=== PATIENT | female | born 1995 | race Caucasian/White ===

== ENCOUNTER 2022-04-10 20:28 | Inpatient (IN) | payer OTHER, SELFPAY ==
[2022-04-10 20:29] VITALS: BP 112/80; PULSE 132; RESP 18; TEMP 36.4; O2SAT 100; BMI 29.9
--- NOTE | 2022-04-10 20:48 | EKG12_ITS ---
Test Reason : SYNCOPE Blood Pressure : / mmHG Vent. Rate : 109 BPM Atrial Rate : 109 BPM P-R Int : 156 ms QRS Dur : 084 ms QT Int : 316 ms P-R-T Axes : 054 070 -33 degrees QTc Int : 425 ms Sinus tachycardia T wave abnormality, consider inferior ischemia Abnormal ECG Confirmed by LIBERTAD SINGH, POOJA ([id number]), deputy editor in chief TODD ESCALANTE ([id number]) on 04/14/2022 12:53:17 PM Referred By: WILLIAM Confirmed By:POOJA MAURER MD
--- NOTE | 2022-04-10 20:50 | EDS_ITS ---
HPI History of Present Illness Chief Complaint: Syncope Informant: patient Onset/Context/Timing Onset: Days (4) Context: Gradual Onset Timing: Continuous Quality: Lightheaded like my head is in a fog Location: Generalized Worsened by: Activity Relieved by: Rest Associated Symptoms Associated Symptoms: Dyspnea, palpitations Narrative Narrative: Patient presents with weakness and dizziness that has been getting worse over the last 4 days. Patient states she had a syncopal episode this morning. Patient states she stood up and passed out this morning. Patient states she only passed out briefly. Patient states her came immediately and she was awake by the time he got there. Patient states that she feels like her head is in a fog. Patient states her symptoms are worse with any activity and better with rest. Patient states she went to the urgent care today and they told her she had a fever of 102. Patient was then referred to the emergency department. Patient admits to some palpitations. Patient also admits to some mild shortness of breath. [facility] Medical History Anemia Home Medications ferrous sulfate [iron] 325 mg PO DAILY 04/10/22 [History Last Taken Unknown] Allergy/AdvReac Type Severity Reaction Status Date / Time No Known Allergies Allergy Verified 04/10/22 20:31 Surgical History no surgical history no surgical history Social History Smoking Status: Never smoker [facility] ED Constitutional Constitutional ED: Reports fever(s); Denies chills Eyes Eyes: Denies blurry vision or change in vision ENT ENT ED: Denies rhinorrhea or sore throat Cardiovascular Cardiovascular: Reports palpitations; Denies chest pain Respiratory/Chest Respiratory/Chest: Reports dyspnea; Denies cough Gastrointestinal Gastrointestinal: Denies nausea or vomiting Genitourinary Genitourinary ED: Denies dysuria or hematuria Musculoskeletal Musculoskeletal: Denies back pain or neck pain Integumentary Denies abscess or rash Neurologic Neurologic: Denies headache(s) or weakness Allergic/Immunologic Allergic/Immunologic ED: Denies mouth swelling or urticaria EXAM Physical Exam Const Vital Signs: 04/10/22 20:29 04/10/22 20:48 04/10/22 20:58 Temperature 97.6 F L 101.6 F H Temperature Source Temporal Oral Pulse Rate 132 H 110 H Respiratory Rate 18 22 H Respiratory Effort Normal Non-Labored Respiratory Pattern Normal Blood Pressure 112/80 74/42 L Blood Pressure Mean 90 52 Pulse Ox 100 110 Oxygen Delivery Method Room Air Room Air 04/10/22 21:26 04/10/22 22:08 Temperature 99.3 F H Temperature Source Oral Pulse Rate 115 H 120 H Respiratory Rate 20 H 18 Respiratory Effort Respiratory Pattern Blood Pressure 115/86 H 111/75 Blood Pressure Mean 95 87 Pulse Ox 100 100 Oxygen Delivery Method Room Air Room Air Positive well nourished and well developed General Appearance ED: well developed and NAD HEENT Reports moist mucous membranes Neck supple and no JVD Resp normal respiratory effort and clear to auscultation bilaterally Cardio regular rate, regular rhythm and no murmurs GI normal to inspection, nondistended, normoactive bowel sounds and non-tender Palpation: soft Extremity normal to inspection General Extremety ED: Negative for edema or tenderness General Extremity: Negative for edema Neuro oriented x3, CN's II-XII intact bilaterally and no sensory deficits noted Sensorium / Orientation: alert Motor Exam: strength 5/5 throughout Psych mental status grossly normal Skin no rashes or lesions noted MDM MDM MDM Narrative Medical decision making narrative: Patient's blood pressure dropped to 74/42 on my initial evaluation. Patient was given 2 L of IV fluids. Patient was also noted to have a fever of 101.6. Patient was given a dose of Tylenol for this. EKG was obtained. On my interpretation, it shows sinus tachycardia with a rate of 109. RI interval, QRS interval, and QTc intervals are normal. [place] was normal. There are nonspecific ST-T wave changes in the inferior leads. There are no prior EKGs available for comparison. CBC was within normal limits. PT with INR and PTT were essentially within normal limits. Comprehensive metabolic profile showed a hypokalemia of 3.1. Initial high-sensitivity troponin was 116. Serum hCG was negative. Urinalysis shows 10-25 red blood cells but no white blood cells. There is no bacteria noted. 2-hour repeat high-sensitivity troponin was obtained and it increased up to 247. Patient was given aspirin. Patient was given a dose of oral potassium here. COVID-19 rapid antigen was obtained and is pending. Case was discussed with the hospitalist. She recommended obtaining a chest x-ray. This was ordered. She will admit the patient to the hospital. Patient and family understood and were agreeable with the plan. All questions were answered. Lab Data Attestation: I reviewed the patient's lab results. Labs: Laboratory Results - last 24 hr 04/10/22 04/10/22 04/10/22 20:54 20:54 20:54 WBC 6.2 RBC 4.25 Hgb 12.5 Hct 37.6 MCV 88.5 MCH 29.4 MCHC 33.2 RDW Std Deviation 42.2 RDW Coeff of Miik 13.1 Plt Count 199 MPV 9.7 Immature Gran % (Auto) 0.200 Neut % (Auto) 75.4 H Lymph % (Auto) 17.9 L Nance % (Auto) 6.3 Eos % (Auto) 0.0 Baso % (Auto) 0.2 Absolute Neuts (auto) 4.7 Absolute Lymphs (auto) 1.11 Nucleated RBC % 0 PT 14.9 INR 1.2 APTT 27.7 Sodium 135 L Potassium 3.1 L Chloride 104 Carbon Dioxide 24.0 Anion Gap 7 BUN 11 Creatinine 0.85 Estim Creat Clear Calc 90.25 Est GFR (MDRD) Af Amer 103 Est GFR (MDRD) Non-Af 85 BUN/Creatinine Ratio 12.9 Glucose 110 H Lactic Acid Calcium 8.8 Total Bilirubin 0.60 AST 24 ALT 32 Alkaline Phosphatase 76 Troponin I High Sens 116 H Total Protein 8.8 H Albumin 3.6 Globulin 5.2 H Albumin/Globulin Ratio 0.7 L Serum , Qual Urine Color Urine Clarity Urine pH Ur Specific [place] Urine Protein Urine Glucose (UA) Urine Ketones Urine Occult Blood Urine Nitrite Urine Bilirubin Urine Urobilinogen Ur Leukocyte Esterase Urine RBC Urine WBC Ur Squamous Epith Cells Urine Bacteria Urine Mucus 04/10/22 04/10/22 04/10/22 20:54 20:54 22:15 WBC RBC Hgb Hct MCV MCH MCHC RDW Std Deviation RDW Coeff of Miki Plt Count MPV Immature Gran % (Auto) Neut % (Auto) Lymph % (Auto) Nance % (Auto) Eos % (Auto) Baso % (Auto) Absolute Neuts (auto) Absolute Lymphs (auto) Nucleated RBC % PT INR APTT Sodium Potassium Chloride Carbon Dioxide Anion Gap BUN Creatinine Estim Creat Clear Calc Est GFR (MDRD) Af Amer Est GFR (MDRD) Non-Af BUN/Creatinine Ratio Glucose Lactic Acid 1.0 Calcium Total Bilirubin AST ALT Alkaline Phosphatase Troponin I High Sens Total Protein Albumin Globulin Albumin/Globulin Ratio Serum , Qual NEGATIVE Urine Color Yellow Urine Clarity Clear Urine pH 7.0 Ur Specific [place] 1.010 Urine Protein 100 H Urine Glucose (UA) Normal Urine Ketones 150 A* Urine Occult Blood 250 H Urine Nitrite Negative Urine Bilirubin Negative Urine Urobilinogen 4 H Ur Leukocyte Esterase 25 H Urine RBC 10-25 SEEN Urine WBC 0-5 SEEN Ur Squamous Epith Cells 0-5 SEEN Urine Bacteria 0 SEEN Urine Mucus RARE 04/10/22 22:50 WBC RBC Hgb Hct MCV MCH MCHC RDW Std Deviation RDW Coeff of Miki Plt Count MPV Immature Gran % (Auto) Neut % (Auto) Lymph % (Auto) Nance % (Auto) Eos % (Auto) Baso % (Auto) Absolute Neuts (auto) Absolute Lymphs (auto) Nucleated RBC % PT INR APTT Sodium Potassium Chloride Carbon Dioxide Anion Gap BUN Creatinine Estim Creat Clear Calc Est GFR (MDRD) Af Amer Est GFR (MDRD) Non-Af BUN/Creatinine Ratio Glucose Lactic Acid Calcium Total Bilirubin AST ALT Alkaline Phosphatase Troponin I High Sens 247 H* Total Protein Albumin Globulin Albumin/Globulin Ratio Serum , Qual Urine Color Urine Clarity Urine pH Ur Specific [place] Urine Protein Urine Glucose (UA) Urine Ketones Urine Occult Blood Urine Nitrite Urine Bilirubin Urine Urobilinogen Ur Leukocyte Esterase Urine RBC Urine WBC Ur Squamous Epith Cells Urine Bacteria Urine Mucus EKG Initial EKG: Attestation: I personally reviewed and interpreted this EKG as follows: Interpretation: Sinus Tachycardia (109) and Non-Specific ST Changes Prior EKG tracings: not available for review Prior: No Prior Discharge Plan Triage Chief Complaint: Syncope ED Provider: Jerry Villasenor Dx/Rx/DC Orders Clinical Impression: Syncope and collapse, Non-ST elevated myocardial infarction (non-STEMI), Hypokalemia, Acute febrile illness Prescriptions: No Action ferrous sulfate [iron] 325 mg (65 mg iron) Tablet 325 mg PO DAILY RF: 0 Primary Care Provider: Zia Sims Referrals: Zia Sims DO [Primary Care Provider] - Disposition Disposition: Acute Care Hospital [facility]
[2022-04-10 20:58] VITALS: BP 74/42; PULSE 110; RESP 22; TEMP 38.7; O2SAT 110
[2022-04-10 21:03] LABS: Absolute Lymphocyte Count 1.11 X10^3/uL (0.83-4.51); Absolute Neutrophil Count 4.7 X10^3/uL (2.0-7.7); Basophil# 0.01 X10^3/uL; Basophil% 0.2 % (0-1); Hematocrit 37.6 % (37-47); Hemoglobin 12.5 g/dL (12.0-15.0); Lymphocyte # 1.11 X10^3/ul (0.83-4.51); Lymphocyte % 17.9 % (19-41); Mean Corp Hgb Conc 33.2 g/dL (32-36); Mean Corpuscular Hgb 29.4 pg (27.0-32.0); Mean Corpuscular Volume 88.5 fL (81-99); Mean Platelet Vol. 9.7 fl (6.2-12.0); Monocyte# 0.39 X10^3/uL; Monocyte% 6.3 % (0-10); NRBC Flagged by Analyzer 0 % (0-5); Neutrophil # 4.67 X10^3/uL (2.7-7.7); Neutrophil % 75.4 % (47-70); Platelet Count 199 K/mm3 (150-450); RBC Distribution Width CV 13.1 % (11.6-14.6); RBC Distribution Width SD 42.2 fl (35.1-43.9); Red Blood Count 4.25 M/mm3 (4.2-5.4); White Blood Count 6.2 K/mm3 (4.4-11.0)
[2022-04-10] MEDS: 0.9% Normal Saline 1,000 ML 1000 ML IV ×2 (21:08→21:35)
[2022-04-10] MEDS: Acetaminophen 500 MG Tablet 1000 MG PO (21:08)
[2022-04-10 21:11] LABS: Internal QC Validated? YES +Cl - CLEAR BKGD; Pregnancy, Serum, hCG Quali. NEGATIVE Negative
[2022-04-10 21:12] LABS: International Normalized Ratio 1.2; Prothrombin Time (Protime)PT. 14.9 SECONDS (11.7-14.9)
[2022-04-10 21:22] LABS: ALB/GLOB Ratio 0.7 RATIO (0.9-2.4); AST(SGOT) 24 U/L (15-37); Alanine Aminotransfer ALT/SGPT 32 U/L (13-56); Albumin, Serum 3.6 g/dL (3.2-5.0); Alkaline Phosphatase 76 U/L (45-117); Anion Gap 7 (5-15); BUN 11 mg/dL (7-18); BUN/Creat Ratio 12.9 RATIO (10-20); Calcium,Total 8.8 mg/dL (8.5-10.1); Chloride 104 mmol/L (98-107); Creatinine, Serum 0.85 mg/dL (0.55-1.02); EST Glomerular Filtration Rate 85 mL/min (>60); Est Glom Filt Rate - Afr Amer 103 mL/min (>60); Estimated Creatinine Clearance 90.25 ml/min; Globulin 5.2 g/dL (2.2-4.2); Glucose 110 mg/dL (74-106); Potassium 3.1 mmol/L (3.5-5.1); Protein, Total 8.8 g/dL (6.4-8.2); Sodium Level 135 mmol/L (136-145); Troponin-I HS 116 pg/mL (3.0-54.0)
[2022-04-10 21:26] VITALS: BP 115/86; PULSE 115; RESP 20; O2SAT 100
[2022-04-10 21:27] LABS: Partial Thromboplast Time 27.7 Seconds (24.1-36.2)
[2022-04-10] MEDS: Potassium Chloride Oral Tablet 20 MEQ 40 MEQ PO (22:05)
[2022-04-10] MEDS: Aspirin 81 MG TAB.CHEW 324 MG PO (22:05)
[2022-04-10 22:08] VITALS: BP 111/75; PULSE 120; RESP 18; TEMP 37.4; O2SAT 100
[2022-04-10 22:20] LABS: Bacteria 0 SEEN /hpf (None Seen)
[2022-04-10 22:39] LABS: Color, Urine Yellow (Yellow); Glucose, Dipstick Normal (Normal); Leukocyte Esterase-Dipstick 25 /ul (Negative); Nitrite-Dipstick Negative (Negative); Occult Blood-Urine 250 /ul (Negative); Protein-Dipstick 100 mg/dl (Negative); Urine Bilirubin Dipstick Negative (Negative); Urine Clarity Clear (Clear); Urine Urobilinogen 4 mg/dl (Normal)
[2022-04-10 22:47] LABS: Ketone-Dipstick 150 mg/dl (Negative)
[2022-04-10 22:48] LABS: Mucous, Urine RARE /hpf (<or=2+); Red Blood Cells-Urine 10-25 SEEN /hpf (0-5); Squamous Epithelial Cells - UA 0-5 SEEN /hpf (5-10); White Blood Cells 0-5 SEEN /hpf (0-5)
[2022-04-10 23:20] LABS: Troponin-I HS 247 pg/mL (3.0-54.0)
--- NOTE | 2022-04-10 23:44 | HP.PCM.HOS_ITS ---
HPI - General General Date of Admission: 04/10/22 Date of Service: 04/10/22 Chief Complaint: Fatigue, malaise, syncope, fever HPI Narrative The patient is a 26 y/o F w/ PMHx: Fe deficiency anemia diagnosed ~ 4 years prior with her initial otherwise healthy who presents to the [facility] ED on 04/10/22 with history of her two young children age 1 and 3 having nausea, emesis, diarrhea without fever or chills ~ 1 week prior with resolution with then onset in herself over the last 4 days fatigue, weakness, lightheadedness, dizziness, sensation of feeling in a fog with syncopal event while in the bathroom with no head trauma with LOC lasting only seconds with concurrent fevers, chills, notable throbbing headache of sudden onset only when she bends over with decreased oral intake and nausea without emesis. She denies any, alteration to sense of taste and smell, emesis or diarrhea. Patient states she did have vaccinations in her youth. She denies having been vaccinated against COVID. Her has not been ill and her children all have improved of note. She does state specifically that she feels chest heaviness and some dyspnea when she leans specifically forward even in a seated position and feels improved if she lays backwards. Work-up in the ED included T101.6, heart rate initially 132 with improvement to 102, BP in the ED did decrease down to 74/42 with improvement to 119/87 following 2 L IV fluids, respiratory rate 18-22, 98 200% on room air, CBC with WC 6.2, hemoglobin 12.5, platelet 199 without left shift, unremarkable coags, CMP with sodium 135, potassium 3.1, glucose 110, initial troponin 116 with repeat 247, serum negative, hepatic profile not marked appearing, lactic acid 1.0, urinalysis with no obvious evidence of UTI, EKG with sinus tachycardia with nonspecific inferior changes, rapid COVID antigen negative. In the ED patient ministered potassium supplementation, aspirin 324 mg p.o. x1, Tylenol 1000 mg p.o. x1 and patient initiated on a heparin drip with bolus per discussion with ED physician. Given presentation did discuss that chest x-ray also be obtained in the ED and this is pending at time of evaluation. Blood culture x2 and urine culture pending per ED. PFSH Medical History (Updated 04/11/22 @ 00:[address] Jannette Aden MD) Anemia Obesity Home Medications ferrous sulfate [iron] 325 mg PO DAILY 04/10/22 [History Last Taken Unknown] Allergy/AdvReac Type Severity Reaction Status Date / Time No Known Allergies Allergy Verified 04/10/22 20:31 Family History (Updated 04/11/22 @ 00:[address] Jannette Aden MD) Grandmother Heart disease Maternal grandmother. CAD (coronary artery disease) Hypertension Myocardial infarction Aunt Heart disease Maternal aunt, CAD (coronary artery disease) Hypertension Myocardial infarction Uncle Heart disease Maternal uncle. CAD (coronary artery disease) Hypertension Myocardial infarction other (Denies any marked history in her mother and father specifically including HD, DM, CA but notable maternal family history as noted.) Surgical History (Updated 04/11/22 @ 00:[address] Jannette Aden MD) No history of previous surgery Surgical History no surgical history Social History (Updated 04/11/22 @ 01:[address] Jannette Aden MD) household members: family and children Smoking Status: Never smoker alcohol intake: never substance use type: does not use ROS ROS Narrative Admission Review of Systems: CONSTITUTIONAL: No weight loss, + fever, chills, weakness or fatigue. HEENT: Eyes: No visual loss, blurred vision, double vision or yellow sclerae. Ears, Nose, Throat: No hearing loss, sneezing, congestion, runny nose or sore throat. SKIN: No rash or itching, lesions, wounds. CARDIOVASCULAR: + Dyspnea/chest heaviness when leaning forward, syncopal event, lightheadedness/dizziness, No chest pain, palpitations, edema, orthopnea, syncopal events. RESPIRATORY: + Shortness of breath when leaning forward, No cough or sputum, wheezing, hemoptysis. GASTROINTESTINAL: + Anorexia, nausea, vomiting or diarrhea, abdominal pain, melena, BRBPR. GENITOURINARY: No dysuria, frequency, urgency or retention. NEUROLOGICAL: + headache, dizziness, syncope, No paralysis, ataxia, numbness or tingling in the extremities, focal weakness, change in bowel or bladder control, seizure. MUSCULOSKELETAL: No muscle, back pain, joint pain or stiffness. HEMATOLOGIC: + anemia, bleeding or bruising. LYMPHATICS: No enlarged nodes. No history of splenectomy. PSYCHIATRIC: No history of depression or anxiety. ENDOCRINOLOGIC: No reports of sweating, cold or heat intolerance. No polyuria or polydipsia. ALLERGIES: No history of asthma, hives, eczema or rhinitis. Vital Signs Vital Signs Vital Signs: 04/10/22 20:29 04/10/22 20:48 04/10/22 20:58 Temperature 97.6 F L 101.6 F H Temperature Source Temporal Oral Pulse Rate 132 H 110 H Respiratory Rate 18 22 H Respiratory Effort Normal Non-Labored Respiratory Pattern Normal Blood Pressure 112/80 74/42 L Blood Pressure Mean 90 52 Pulse Ox 100 110 Oxygen Delivery Method Room Air Room Air 04/10/22 21:26 04/10/22 22:08 Temperature 99.3 F H Temperature Source Oral Pulse Rate 115 H 120 H Respiratory Rate 20 H 18 Respiratory Effort Respiratory Pattern Blood Pressure 115/86 H 111/75 Blood Pressure Mean 95 87 Pulse Ox 100 100 Oxygen Delivery Method Room Air Room Air Weight Weight: 180 lb Body Mass Index (BMI) 29.9 Physical Exam Narrative Physical Examination: General: Awake, alert, oriented x 3 and cooperative, seated upright in the ED bed in no apparent distress, fatigued appearing. Skin: Normal color, normal turgor, no icterus, no cyanosis. HEENT: AT/NC, EOMI, PERRLA, dry MM, no carotid bruits or JVD noted. Lungs: Diminished, greater bases, moderate effort, no rales, ronchi or wheezing. Heart: Mildly tachycardic with regular rhythm; no gallop, rub audible. Abdomen: Soft, obese, NTTP, ND, distant mildly hyperactive BS, no HSM. Extremities: No cyanosis, clubbing, or edema. Neurological: Patient awake, alert, oriented as noted, cognitive function intact; pupils equally reactive to light and accommodation, cranial nerves II- XII grossly normal, moving all 4 extremities, no focal deficits, strength moderately global decrease secondary to acute presentation and complaints Psychiatric: Affect appears fatigued, mildly ill appearing, no acute evidence of depressive or anxiety feelings. Results Lab / Micro Data Result Diagrams: 04/10/22 20:54 04/10/22 20:54 Labs: Laboratory Results - last 24 hr 04/10/22 20:54: WBC 6.2, RBC 4.25, Hgb 12.5, Hct 37.6, MCV 88.5, MCH 29.4, MCHC 33.2, RDW Std Deviation 42.2, RDW Coeff of Miki 13.1, Plt Count 199, MPV 9.7, Immature Gran % (Auto) 0.200, Neut % (Auto) 75.4 H, Lymph % (Auto) 17.9 L, [place] % (Auto) 6.3, Eos % (Auto) 0.0, Baso % (Auto) 0.2, Absolute Neuts (auto) 4.7, Absolute Lymphs (auto) 1.11, Nucleated RBC % 0 04/10/22 20:54: PT 14.9, INR 1.2, APTT 27.7 04/10/22 20:54: Sodium 135 L, Potassium 3.1 L, Chloride 104, Carbon Dioxide 2 4.0, Anion Gap 7, BUN 11, Creatinine 0.85, Estim Creat Clear Calc 90.25, Est GFR (MDRD) Af Amer 103, Est GFR (MDRD) Non-Af 85, BUN/Creatinine Ratio 12.9, Glucose 110 H, Calcium 8.8, Total Bilirubin 0.60, AST 24, ALT 32, Alkaline Phosphatase 76, Troponin I High Sens 116 H, Total Protein 8.8 H, Albumin 3.6, Globulin 5.2 H , Albumin/Globulin Ratio 0.7 L 04/10/22 20:54: Lactic Acid 1.0 04/10/22 20:54: Serum , Qual NEGATIVE 04/10/22 22:15: Urine Color Yellow, Urine Clarity Clear, Urine pH 7.0, Ur Specific [place] 1.010, Urine Protein 100 H, Urine Glucose (UA) Normal, Urine Ketones 150 A*, Urine Occult Blood 250 H, Urine Nitrite Negative, Urine Bilirubin Negative, Urine Urobilinogen 4 H, Ur Leukocyte Esterase 25 H, Urine RBC 10-25 SEEN, Urine WBC 0-5 SEEN, Ur Squamous Epith Cells 0-5 SEEN, Urine Bacteria 0 SEEN, Urine Mucus RARE 04/10/22 22:50: Troponin I High Sens 247 H* Micro: Microbiology 04/10/22 23:12 Nasal Secretion SARS-CoV-2 Antigen (Rapid) - Final Assessment & Plan Assessment/Plan (1) Syncope and collapse: (2) Non-ST elevated myocardial infarction (non-STEMI): (3) Hypokalemia: (4) Acute febrile illness: PLAN: The patient is a 26 y/o F w/ PMHx: Fe deficiency anemia diagnosed ~ 4 years prior with her initial otherwise healthy who presents to the [facility] ED on 04/10/22 with history of her two young children age 1 and 3 having nausea, emesis, diarrhea without fever or chills ~ 1 week prior with resolution with then onset in herself over the last 4 days fatigue, weakness, lightheadedness, dizziness, sensation of feeling in a fog with syncopal event wh ile in the bathroom with no head trauma with LOC lasting only seconds with concurrent fevers, chills, notable throbbing headache of sudden onset only when she bends over with decreased oral intake and nausea without emesis. #1. Acute NSTEMI, suspect related with #2 with acute viral syndrome with high suspicion for myocarditis: EKG in ED w/ sinus tachycardia with nonspecific inferior changes with no comparison available, CXR pending upon evaluation as had not been performed previously, Trop elevated, 116 with repeat 247. Will admit to PCU, maintain on a monitored bed, continue serial cardiac enzymes and EKGs. Obtain magnesium level upon admission. Discussed with ED physician and heparin drip will be initiated and continued. Continue medical management w/ asa, AM FLP will be obtained. ECHO requested. CRP and ESR requested. Cardiology consultation requested. #2. Suspected acute viral syndrome: Likely related to #1, children in the home are also ill, COVID PCR has been requested as well as full respiratory viral panel, maintain on precautions, pending results low threshold to involve infectious disease, ESR and CRP have been requested as well as echocardiogram as noted certainly could have acute myocarditis related. #3. Hyponatremia, mild: Suspect likely secondary to poor oral intake with acute presentation as noted, will continue judicious hydration, repeat CMP in AM. #4. Acute hypokalemia, suspect related with #2: Improved with IV fluids, continue judicious hydration, maintain on fall precautions as needed. #5. Hypokalemia: Admission K+ 3.1, magnesium level requested, supplementation given, repeat level in AM. #6. Chronic anemia/iron deficiency anemia: Admission hemoglobin 12.5, no comparison, reports taking natural iron supplementations OTC. #7. DVT prophylaxis: SCDs, continue heparin drip as noted. Charges/Coding Visit Charges Inpatient E&M: 79981 Init Hosp L3
[2022-04-11] VITALS (11 sets, daily range): BP systolic 110–120; BP diastolic 68–87; PULSE 84–107; RESP 12–18; TEMP 35.6–38.2; O2SAT 96–100; BMI 29.9
--- NOTE | 2022-04-11 | RAD_ITS ---
STUDY: X-RAY CHEST REASON FOR EXAM: Female, 26 years old. syncope TECHNIQUE: Single AP portable view of the chest. 12:26 AM. COMPARISON: None. FINDINGS: The lungs are clear and expanded. There is no demonstrated pleural abnormality. Normal size heart. Normal mediastinum and yair. Normal visualized pulmonary arteries. Normal visualized aortic arch and descending thoracic aorta. Normal visualized thoracic spine. Normal visualized ribs, clavicles, and shoulders. There is no demonstrated abnormality of the visualized soft tissue structures of the upper abdomen. RAD/Chest 1 View (Portable) IMPRESSION: Negative. No acute cardiopulmonary disease process identified. Electronically Signed: Amor Vincent MD at 1:58 EDT ,
[2022-04-11 00:14] LABS: Erythrocyte Sedimentation Rate 53 mm/hr (0-30)
[2022-04-11] MEDS: Heparin Injection (Vial) 5,000 UNIT/ML VIAL 6000 UNIT IV (00:30)
[2022-04-11] MEDS: HEPARIN/D5w 25,000 UNITS 25,000 UNITS/250 ML IV.SOLN. 12 UNITS CONT INF (00:34)
[2022-04-11 00:36] LABS: Magnesium 1.8 mg/dL (1.6-2.6)
[2022-04-11 00:38] LABS: BNP,B-Type NATRIURETIC PEPTIDE 313.5 pg/mL (0-100)
[2022-04-11 00:46] LABS: Procalcitonin 0.13 ng/mL (0.00-0.09)
--- NOTE | 2022-04-11 01:07 | ECHOD_ITS ---
Reason For Study: NSTEMI Procedure This was a 2D Doppler, Color Flow transthoracic echocardiogram. Exam performed portable in patient room. Left Ventricle Normal LV size. Left ventricular systolic function is normal. The estimated ejection fraction is 60 %. No regional wall motion abnormalities noted. Right Ventricle Normal RV size. Normal systolic function. Atria Normal left atrium. Normal right atrium. Mitral Valve Normal mitral valve. Tricuspid Valve Normal tricuspid valve. Mild tricuspid valve insufficiency. Aortic Valve Normal aortic valve. Pulmonic Valve Normal pulmonic valve. Great Vessels Normal aortic root. The pulmonary artery is normal size. Normal inferior vena cava. Pericardium/Pleural No pericardial effusion. MMode/2D Measurements & Calculations LVIDd: 5.1 cm IVSd: 1.1 cm Ao root diam: 2.4 cm LVIDs: 4.2 cm LVPWd: 0.87 cm RVDd: 3.7 cm FS: 17.5 % LAV(MOD-sp4): 55.8 ml LVAd ap4: 32.1 cm2 SV(MOD-sp4): 53.5 ml LVLd ap4: 8.6 cm EDV(MOD-sp4): 101.7 ml EDV(sp4-el): 101.7 ml LVAs ap4: 20.1 cm2 LVLs ap4: 7.2 cm ESV(MOD-sp4): 48.2 ml ESV(sp4-el): 47.8 ml EF(MOD-sp4): 52.6 % EF(sp4-el): 53.0 % SV(sp4-el): 53.9 ml LA A4 area: 19.9 cm2 LA dimension(2D): 3.7 cm RA A4 area: 15.3 cm2 Doppler Measurements & Calculations MV E max sangeetha: 99.8 cm/sec Ao V2 max: 136.2 cm/sec LV V1 max: 111.5 cm/sec Ao max P.4 mmHg LV V1 max P.0 mmHg PA V2 max: 82.8 cm/sec TR max sangeetha: 194.0 cm/sec TR max P.1 mmHg ECHO/Echo Complete Interpretation Summary Normal LV size. Left ventricular systolic function is normal. The estimated ejection fraction is 60 %. Mild tricuspid valve insufficiency. Structurally normal valves. Ordering Physician: Jannette Aden Performed By: Gaviota Terry RCS
[2022-04-11] MEDS: 0.9% Normal Saline 1,000 ML 125 ML IV ×2 (01:22→07:51)
[2022-04-11 04:28] LABS: Troponin-I HS 240 pg/mL (3.0-54.0)
[2022-04-11 04:45] LABS: ALB/GLOB Ratio 0.7 RATIO (0.9-2.4); AST(SGOT) 21 U/L (15-37); Alanine Aminotransfer ALT/SGPT 29 U/L (13-56); Albumin, Serum 2.9 g/dL (3.2-5.0); Alkaline Phosphatase 60 U/L (45-117); Anion Gap 5 (5-15); BUN 10 mg/dL (7-18); Calcium,Total 7.8 mg/dL (8.5-10.1); Chloride 113 mmol/L (98-107); Creatinine, Serum 0.62 mg/dL (0.55-1.02); EST Glomerular Filtration Rate 122 mL/min (>60); Est Glom Filt Rate - Afr Amer 148 mL/min (>60); Estimated Creatinine Clearance 118.74 ml/min; Globulin 4.4 g/dL (2.2-4.2); Glucose 114 mg/dL (74-106); Potassium 3.5 mmol/L (3.5-5.1); Protein, Total 7.3 g/dL (6.4-8.2); Sodium Level 139 mmol/L (136-145)
--- NOTE | 2022-04-11 05:55 | EKG12_ITS ---
Test Reason : AM EKG Blood Pressure : / mmHG Vent. Rate : 087 BPM Atrial Rate : 087 BPM P-R Int : 164 ms QRS Dur : 094 ms QT Int : 364 ms P-R-T Axes : 061 078 -20 degrees QTc Int : 438 ms Normal sinus rhythm Nonspecific T wave abnormality Abnormal ECG When compared with ECG of 10-APR-2022 20:54, MANUAL COMPARISON REQUIRED, DATA IS UNCONFIRMED Confirmed by LIBERTAD SINGH, POOJA ([id number]), make up editor TODD ESCALANTE ([id number]) on 04/14/2022 1:07:34 PM Referred By: Confirmed By:POOJA MAURER MD
[2022-04-11 07:01] LABS: Absolute Neutrophil Count 2.2 X10^3/uL (2.0-7.7); Basophil# 0.01 X10^3/uL; Basophil% 0.3 % (0-1); Hematocrit 33.4 % (37-47); Hemoglobin 10.8 g/dL (12.0-15.0); Lymphocyte % 33.1 % (19-41); Mean Corp Hgb Conc 32.3 g/dL (32-36); Mean Corpuscular Hgb 29.4 pg (27.0-32.0); Mean Platelet Vol. 9.7 fl (6.2-12.0); Monocyte# 0.46 X10^3/uL; Monocyte% 11.7 % (0-10); NRBC Flagged by Analyzer 0 % (0-5); Neutrophil # 2.15 X10^3/uL (2.7-7.7); Neutrophil % 54.6 % (47-70); Platelet Count 152 K/mm3 (150-450); RBC Distribution Width CV 13.4 % (11.6-14.6); RBC Distribution Width SD 45.2 fl (35.1-43.9); Red Blood Count 3.67 M/mm3 (4.2-5.4); White Blood Count 3.9 K/mm3 (4.4-11.0)
[2022-04-11 07:16] LABS: Partial Thromboplast Time 47.8 Seconds (24.1-36.2)
[2022-04-11] MEDS: Aspirin 81 MG TAB.CHEW PO (07:48)
[2022-04-11] MEDS: Heparin Injection (Vial) 5,000 UNIT/ML VIAL IV (07:48)
[2022-04-11] MEDS: Ferrous Sulfate 325 MG Tablet PO (07:48)
[2022-04-11] MEDS: 0.9% Saline Lock 10 ML Syringe IV (07:49)
--- NOTE | 2022-04-11 08:56 | PCM.PN.HOSP ---
Subjective Subjective Patient seen and examined. She still complained of feeling weak and tired. She denies any chest pain or pressure, any fever, chills, nausea, vomiting or diarrhea. Review of systems is otherwise negative. Objective Data Objective Data Vital Signs: Vital Signs Temp Pulse Resp BP Pulse Ox 96.1 F L 91 16 114/68 96 04/11/22 05:07 04/11/22 06:59 04/11/22 05:07 04/11/22 05:07 04/11/22 08:06 Oxygen Delivery Method Room Air Weight: 179 lb 14.355 oz Body Mass Index (BMI) 29.9 Intake & Output: Intake and Output for Last 24 Hours 04/09/22 04/10/22 04/11/22 23:59 23:59 23:59 Intake Total 1450 / 1450 897.42 / 897.42 Balance 1450 / 1450 897.42 / 897.42 Lab / Micro Data Result Diagrams: 04/11/22 06:46 04/11/22 03:05 Labs: Laboratory Results - last 24 hr 04/10/22 20:54: WBC 6.2, RBC 4.25, Hgb 12.5, Hct 37.6, MCV 88.5, MCH 29.4, MCHC 33.2, RDW Std Deviation 42.2, RDW Coeff of Miki 13.1, Plt Count 199, MPV 9.7, Immature Gran % (Auto) 0.200, Neut % (Auto) 75.4 H, Lymph % (Auto) 17.9 L, [place] % (Auto) 6.3, Eos % (Auto) 0.0, Baso % (Auto) 0.2, Absolute Neuts (auto) 4.7, Absolute Lymphs (auto) 1.11, Nucleated RBC % 0 04/10/22 20:54: PT 14.9, INR 1.2, APTT 27.7 04/10/22 20:54: Sodium 135 L, Potassium 3.1 L, Chloride 104, Carbon Dioxide 24.0, Anion Gap 7, BUN 11, Creatinine 0.85, Estim Creat Clear Calc 90.25, Est GFR (MDRD) Af Amer 103, Est GFR (MDRD) Non-Af 85, BUN/Creatinine Ratio 12.9, Glucose 110 H, Calcium 8.8, Total Bilirubin 0.60, AST 24, ALT 32, Alkaline Phosphatase 76, Troponin I High Sens 116 H, Total Protein 8.8 H, Albumin 3.6, Globulin 5.2 H, Albumin/Globulin Ratio 0.7 L 04/10/22 20:54: Lactic Acid 1.0 04/10/22 20:54: Serum , Qual NEGATIVE 04/10/22 20:54: ESR 53 H 04/10/22 20:54: B-Natriuretic Peptide 313.5 H 04/10/22 22:15: Urine Color Yellow, Urine Clarity Clear, Urine pH 7.0, Ur Specific [place] 1.010, Urine Protein 100 H, Urine Glucose (UA) Normal, Urine Ketones 150 A*, Urine Occult Blood 250 H, Urine Nitrite Negative, Urine Bilirubin Negative, Urine Urobilinogen 4 H, Ur Leukocyte Esterase 25 H, Urine RBC 10-25 SEEN, Urine WBC 0-5 SEEN, Ur Squamous Epith Cells 0-5 SEEN, Urine Bacteria 0 SEEN, Urine Mucus RARE 04/10/22 22:50: Troponin I High Sens 247 H* 04/10/22 22:50: Magnesium 1.8, C-React Prot Ext Range 142.00 H 04/10/22 22:50: Procalcitonin 0.13 H 04/10/22 23:55: COVID-19 (JACKI) Not Detected 04/11/22 03:05: Sodium 139, Potassium 3.5, Chloride 113 H, Carbon Dioxide 21.0, Anion Gap 5, BUN 10, Creatinine 0.62, Estim Creat Clear Calc 118.74, Est GFR (MDRD) Af Amer 148, Est GFR (MDRD) Non-Af 122, BUN/Creatinine Ratio 16.0, Glucose 114 H, Calcium 7.8 L, Total Bilirubin 0.40, AST 21, ALT 29, Alkaline Phosphatase 60, Total Protein 7.3, Albumin 2.9 L, Globulin 4.4 H, Albumin/Globulin Ratio 0.7 L 04/11/22 03:05: Troponin I High Sens 240 H* 04/11/22 06:46: WBC 3.9 L, RBC 3.67 L, Hgb 10.8 L, Hct 33.4 L, MCV 91.0, MCH 29.4, MCHC 32.3, RDW Std Deviation 45.2 H, RDW Coeff of Miki 13.4, Plt Count 152, MPV 9.7, Immature Gran % (Auto) 0.300, Neut % (Auto) 54.6, Lymph % (Auto) 33.1, [place] % (Auto) 11.7 H, Eos % (Auto) 0.0, Baso % (Auto) 0.3, Absolute Neuts (auto) 2.2, Absolute Lymphs (auto) 1.30, Nucleated RBC % 0 04/11/22 06:46: APTT 47.8 H Micro: Microbiology 04/10/22 23:55 Mucosa - Nose Respiratory Panel (PCR) - Final 04/10/22 23:12 Nasal Secretion SARS-CoV-2 Antigen (Rapid) - Final Radiography Diagnostic Testing: Radiology Impression Chest X-Ray 04/11/22 00:00 IMPRESSION: Negative. No acute cardiopulmonary disease process identified. Electronically Signed: Amor Vincent MD at 1:58 EDT Reading Location ID and State: [id number] [facility] Tel , Service support , Physical Exam Const alert, oriented x3 and no apparent distress Exam Limitations: no limitations HEENT head/scalp atraumatic and moist oral mucous membranes Head and Scalp: normocephalic Eyes PERRL, EOMs intact bilaterally and conjunctivae normal Neck no lymphadenopathy, supple and no JVD Resp normal respiratory effort, no retractions, no use of accessory muscles and clear to auscultation bilaterally Cardio regular rate, regular rhythm, S1 normal heart sound, S2 normal heart sound and no murmurs GI normal to inspection, nondistended, normoactive bowel sounds, soft to palpation, non-tender and non-distended Extremity normal to inspection, full ROM and no clubbing, cyanosis or edema Peripheral Pulses: Yes pulses 2+ throughout Skin no rashes or lesions noted and no wounds Neuro oriented x3, CN's II-XII intact bilaterally and moves all extremities Sensorium / Orientation: awake and alert Psych affect normal Assessment & Plan Assessment/Plan (1) Non-ST elevated myocardial infarction (non-STEMI): (2) Syncope and collapse: PLAN: #Nonstemi, likely due to myocarditis in setting of recent viral illness patient says her children had an acute viral illness a few days prior to her symptoms; she subsequently started feeling very weak and tired and nearly passed out troponins were elevated, with initial troponin being 116, and trended up to a peak of 247 on heparin drip I suspect that patient likely caught a viral illness such as CMV from her children, and now has myocarditis/pericarditis cardiology consulted. Await rec's will take patient out of isolation as her respiratory panel and covid test were negative. also on aspirin ESR and CRP are also elevated. 2D echo ordered and pending #Syncope likely due to her myocarditis feels better now. Will monitor #Acute viral syndrome suspect its due to CMV infection she may have caught from her kids CMV IgM and PCR ordered patient taken out of isolation as patient's covid test and respriatory panel were negative. #HYpokalemia and hyponatremia; resolved DVT prophylaxis; not indicated as she is on heparin drip Charges/Coding Visit Charges Inpatient E&M: 48498 Subs Hosp L2
--- NOTE | 2022-04-11 10:35 | CASEMGMT ---
RN MARTHA Face to Face with patient for initial transition planning/care coordination assessment. RN CM introduced self and role at [facility]. Patient lying in bed, alert and oriented. Patient willing to participate in assessment and is able to answer all questions appropriately. Care providers, pharmacy, and demographics verified. Patient wishes to discharge home, denies need for home health at this time. Patient states she has no further needs or concerns at this time. CM to follow for discharge planning needs that may arise. PCP: Bethany Specialists: none Preferred Pharmacy: [facility] retail at discharge. Insurance: [employer] Prescription Benefit: none Living Will/HPOA: none LNOK: Living Arrangements: Patient lives with in a 2 story home with bed and bath on first floor. Patient states she is independent and able to ambulate stairs. Transportation: sister, DARYA DME/HHC: Patient states she has raised toilet and grab bars at home. No previous HHC. Disposition Plan: Patient to discharge home with family support and follow-up plans in place. Wendy VEGA, RN, CM
--- NOTE | 2022-04-11 12:10 | PCM.CONS.C ---
Assessment & Plan Assessment/Plan (1) Syncope and collapse: PLAN: Echo is unremarkable. Telemetry is unremarkable. Etiology could be related to the acute febrile illness. No further work-up required from a cardiac standpoint. Recommend adequate hydration. (2) Elevated troponin: PLAN: While this could be just related to her acute febrile illness, with the chest tightness that is more pronounced on sitting up, subtle EKG change it is reasonable to treat this as myocarditis. Recommend ibuprofen 400 mg p.o. 3 times daily for 10 to 14 days along with GI prophylaxis with a PPI. I would also suggest colchicine 0.6 mg p.o. twice daily for about 1 month. Follow-up with cardiology as an outpatient. HPI Consult Data Date of Consult: 04/11/22 HPI Narrative HPI Narrative: SALO JOHNSON, is a 26 F who presents after an episode of syncope. Patient apparently lost consciousness briefly with no head trauma. She is not the best historian but states that over the last few days she has been feeling weak and fatigued. She also had occasional chest tightness which was more on sitting up and better on lying down. It was not consistent and nonexertional. Patient's troponin went up to the 200s and her CRP and BNP are elevated as well. Her echo revealed preserved EF with no significant wall motion abnormalities and no significant effusion. The EKG from yesterday reveals subtle OR depression and 1-lead. EKG today does not reveal any evidence of pericarditis. Patient also had fever on presentation. Review of systems: All systems reviewed. All else is negative except in the HPI. [facility] Medical History (Updated 04/11/22 @ 12:[address] Maik Mclaughlin MD) Anemia Obesity Home Medications ferrous sulfate [iron] 325 mg PO DAILY 04/10/22 [History Last Taken Unknown] Allergy/AdvReac Type Severity Reaction Status Date / Time No Known Allergies Allergy Verified 04/10/22 20:31 Family History (Updated 04/11/22 @ 00:[address] Jannette Aden MD) Grandmother Heart disease Maternal grandmother. CAD (coronary artery disease) Hypertension Myocardial infarction Aunt Heart disease Maternal aunt, CAD (coronary artery disease) Hypertension Myocardial infarction Uncle Heart disease Maternal uncle. CAD (coronary artery disease) Hypertension Myocardial infarction Family History other Surgical History (Updated 04/11/22 @ 00:[address] Jannette Aden MD) No history of previous surgery Surgical History no surgical history Social History (Updated 04/11/22 @ 01:[address] Jannette Aden MD) household members: family and children Smoking Status: Never smoker alcohol intake: never substance use type: does not use Physical Exam Const alert and oriented x3 Orientation / Consciousness: awake HEENT normocephalic Eyes no scleral icterus Chest inspection of chest normal Resp normal respiratory effort Cardio regular rate, no murmurs and no rub Extremity no pedal edema Skin no rashes or lesions noted Neuro oriented x3 Psych mental status grossly normal Risk Stratification Risk Stratification Applicable: No Charges/Coding Visit Charges Inpatient E&M: 21964 Init Hosp L2 Objective Data Vital Signs: Vital Signs Temp Pulse Resp BP Pulse Ox 97.2 F L 107 H 18 112/72 100 04/11/22 10:43 04/11/22 11:02 04/11/22 10:43 04/11/22 10:43 04/11/22 10:43 Oxygen Delivery Method Room Air Weight: 179 lb 14.355 oz Body Mass Index (BMI) 29.9 Intake & Output: Intake and Output for Last 24 Hours 04/09/22 04/10/22 04/11/22 23:59 23:59 23:59 Intake Total 1450 / 1450 1357.42 / 1357.42 Balance 1450 / 1450 1357.42 / 1357.42 Lab / Micro Data Result Diagrams: 04/11/22 06:46 04/11/22 03:05 Labs: Laboratory Results - last 24 hr 04/10/22 20:54: WBC 6.2, RBC 4.25, Hgb 12.5, Hct 37.6, MCV 88.5, MCH 29.4, MCHC 33.2, RDW Std Deviation 42.2, RDW Coeff of Miki 13.1, Plt Count 199, MPV 9.7, Immature Gran % (Auto) 0.200, Neut % (Auto) 75.4 H, Lymph % (Auto) 17.9 L, [place] % (Auto) 6.3, Eos % (Auto) 0.0, Baso % (Auto) 0.2, Absolute Neuts (auto) 4.7, Absolute Lymphs (auto) 1.11, Nucleated RBC % 0 04/10/22 20:54: PT 14.9, INR 1.2, APTT 27.7 04/10/22 20:54: Sodium 135 L, Potassium 3.1 L, Chloride 104, Carbon Dioxide 24.0, Anion Gap 7, BUN 11, Creatinine 0.85, Estim Creat Clear Calc 90.25, Est GFR (MDRD) Af Amer 103, Est GFR (MDRD) Non-Af 85, BUN/Creatinine Ratio 12.9, Glucose 110 H, Calcium 8.8, Total Bilirubin 0.60, AST 24, ALT 32, Alkaline Phosphatase 76, Troponin I High Sens 116 H, Total Protein 8.8 H, Albumin 3.6, Globulin 5.2 H, Albumin/Globulin Ratio 0.7 L 04/10/22 20:54: Lactic Acid 1.0 04/10/22 20:54: Serum , Qual NEGATIVE 04/10/22 20:54: ESR 53 H 04/10/22 20:54: B-Natriuretic Peptide 313.5 H 04/10/22 20:54: Procalcitonin 0.13 H 04/10/22 22:15: Urine Color Yellow, Urine Clarity Clear, Urine pH 7.0, Ur Specific [employer] 1.010, Urine Protein 100 H, Urine Glucose (UA) Normal, Urine Ketones 150 A*, Urine Occult Blood 250 H, Urine Nitrite Negative, Urine Bilirubin Negative, Urine Urobilinogen 4 H, Ur Leukocyte Esterase 25 H, Urine RBC 10-25 SEEN, Urine WBC 0-5 SEEN, Ur Squamous Epith Cells 0-5 SEEN, Urine Bacteria 0 SEEN, Urine Mucus RARE 04/10/22 22:50: Troponin I High Sens 247 H* 04/10/22 22:50: Magnesium 1.8, C-React Prot Ext Range 142.00 H 04/10/22 23:55: COVID-19 (JACKI) Not Detected 04/11/22 03:05: Sodium 139, Potassium 3.5, Chloride 113 H, Carbon Dioxide 21.0, Anion Gap 5, BUN 10, Creatinine 0.62, Estim Creat Clear Calc 118.74, Est GFR (MDRD) Af Amer 148, Est GFR (MDRD) Non-Af 122, BUN/Creatinine Ratio 16.0, Glucose 114 H, Calcium 7.8 L, Total Bilirubin 0.40, AST 21, ALT 29, Alkaline Phosphatase 60, Total Protein 7.3, Albumin 2.9 L, Globulin 4.4 H, Albumin/Globulin Ratio 0.7 L 04/11/22 03:05: Troponin I High Sens 240 H* 04/11/22 06:46: WBC 3.9 L, RBC 3.67 L, Hgb 10.8 L, Hct 33.4 L, MCV 91.0, MCH 29.4, MCHC 32.3, RDW Std Deviation 45.2 H, RDW Coeff of Miki 13.4, Plt Count 152, MPV 9.7, Immature Gran % (Auto) 0.300, Neut % (Auto) 54.6, Lymph % (Auto) 33.1, [place] % (Auto) 11.7 H, Eos % (Auto) 0.0, Baso % (Auto) 0.3, Absolute Neuts (auto) 2.2, Absolute Lymphs (auto) 1.30, Nucleated RBC % 0 04/11/22 06:46: APTT 47.8 H Micro: Microbiology 04/10/22 23:55 Mucosa - Nose Respiratory Panel (PCR) - Final 04/10/22 23:12 Nasal Secretion SARS-CoV-2 Antigen (Rapid) - Final Cardiology Labs/Tests 04/10/22 20:54: WBC 6.2, RBC 4.25, Hgb 12.5, Hct 37.6, MCV 88.5, MCH 29.4, MCHC 33.2, Plt Count 199, MPV 9.7, Immature Gran % (Auto) 0.200, Neut % (Auto) 75.4 H, Lymph % (Auto) 17.9 L, [place] % (Auto) 6.3, Eos % (Auto) 0.0, Baso % (Auto) 0.2, Absolute Neuts (auto) 4.7, Nucleated RBC % 0 04/10/22 20:54: PT 14.9, INR 1.2, APTT 27.7 04/10/22 20:54: Sodium 135 L, Potassium 3.1 L, Chloride 104, Carbon Dioxide 24.0, Anion Gap 7, BUN 11, Creatinine 0.85, Est GFR (MDRD) Af Amer 103, Est GFR (MDRD) Non-Af 85, BUN/Creatinine Ratio 12.9, Glucose 110 H, Calcium 8.8, Total Bilirubin 0.60 04/10/22 20:54: Lactic Acid 1.0 04/10/22 20:54: B-Natriuretic Peptide 313.5 H 04/10/22 22:15: Urine Color Yellow, Urine Clarity Clear, Urine pH 7.0, Ur Specific [employer] 1.010, Urine Protein 100 H, Urine Glucose (UA) Normal, Urine Ketones 150 A*, Urine Occult Blood 250 H, Urine Nitrite Negative, Urine Bilirubin Negative, Urine Urobilinogen 4 H, Ur Leukocyte Esterase 25 H, Urine RBC 10-25 SEEN, Urine WBC 0-5 SEEN 04/10/22 22:50: Magnesium 1.8 04/11/22 03:05: Sodium 139, Potassium 3.5, Chloride 113 H, Carbon Dioxide 21.0, Anion Gap 5, BUN 10, Creatinine 0.62, Est GFR (MDRD) Af Amer 148, Est GFR (MDRD) Non-Af 122, BUN/Creatinine Ratio 16.0, Glucose 114 H, Calcium 7.8 L, Total Bilirubin 0.40 04/11/22 06:46: WBC 3.9 L, RBC 3.67 L, Hgb 10.8 L, Hct 33.4 L, MCV 91.0, MCH 29.4, MCHC 32.3, Plt Count 152, MPV 9.7, Immature Gran % (Auto) 0.300, Neut % (Auto) 54.6, Lymph % (Auto) 33.1, [place] % (Auto) 11.7 H, Eos % (Auto) 0.0, Baso % (Auto) 0.3, Absolute Neuts (auto) 2.2, Nucleated RBC % 0 04/11/22 06:46: APTT 47.8 H Rhythm: EKG: ECHO: Stress Test: Cardiac Cath: PCI: CT Surgery: Holter monitor: EPS: PPM: CXR: Chest CT Scan: Radiography Diagnostic Testing: Radiology Impression Chest X-Ray 04/11/22 00:00 IMPRESSION: Negative. No acute cardiopulmonary disease process identified. Electronically Signed: Amor Vincent MD at 1:58 EDT ,
--- NOTE | 2022-04-11 13:00 | PCM.CONS.GEN ---
Assessment & Plan Assessment/Plan (1) Acute febrile illness: PLAN: CMV and bcx pending. Covid and resp pcr panel neg. Will also check lyme. Starting treatment for myocarditis per cardiology. Will follow, thank you HPI Consult Data Date of Consult: 04/11/22 HPI Narrative HPI Narrative: SALO JOHNSON, is a 26 F who presented with 5 days of dizziness with bending over, fatigue, mild chest soreness with deep breath. Came to ED after syncope. Children at home and 's family with 24 hour stomach flu a week ago. Pt with no n/v/d. No rash or tick bites, no fever, no chills, no change in taste/smell, no muscle aches, no dysuria, no lymphadenopathy. Came to ED, fever to 101.6, cxs sent, feeling a little better this afternoon. Full ROS performed and neg except as noted above. [facility] Medical History Anemia Obesity Home Medications ferrous sulfate [iron] 325 mg PO DAILY 04/10/22 [History Last Taken Unknown] Allergy/AdvReac Type Severity Reaction Status Date / Time No Known Allergies Allergy Verified 04/10/22 20:31 Family History (Updated 04/11/22 @ 00:[address] Jannette Aden MD) Grandmother Heart disease Maternal grandmother. CAD (coronary artery disease) Hypertension Myocardial infarction Aunt Heart disease Maternal aunt, CAD (coronary artery disease) Hypertension Myocardial infarction Uncle Heart disease Maternal uncle. CAD (coronary artery disease) Hypertension Myocardial infarction Family History other Surgical History (Updated 04/11/22 @ 00:[address] Jannette Aden MD) No history of previous surgery Surgical History no surgical history Social History (Updated 04/11/22 @ 01:[address] Jannette Aden MD) household members: family and children Smoking Status: Never smoker alcohol intake: never substance use type: does not use Physical Exam Const alert, oriented x3 and no apparent distress General Appearance: cooperative Exam Limitations: no limitations HEENT normocephalic and head/scalp atraumatic Eyes PERRL and EOMs intact bilaterally Neck supple and No nodes Resp normal air movement and clear to auscultation bilaterally Cardio regular rate and regular rhythm GI soft to palpation, non-tender and non-distended Extremity no clubbing, cyanosis or edema Skin no rashes or lesions noted Neuro CN's II-XII intact bilaterally Lab / Micro Data Result Diagrams: 04/11/22 06:46 04/11/22 03:05 Labs: Laboratory Results - last 24 hr 04/10/22 20:54: WBC 6.2, RBC 4.25, Hgb 12.5, Hct 37.6, MCV 88.5, MCH 29.4, MCHC 33.2, RDW Std Deviation 42.2, RDW Coeff of Miki 13.1, Plt Count 199, MPV 9.7, Immature Gran % (Auto) 0.200, Neut % (Auto) 75.4 H, Lymph % (Auto) 17.9 L, [place] % (Auto) 6.3, Eos % (Auto) 0.0, Baso % (Auto) 0.2, Absolute Neuts (auto) 4.7, Absolute Lymphs (auto) 1.11, Nucleated RBC % 0 04/10/22 20:54: PT 14.9, INR 1.2, APTT 27.7 04/10/22 20:54: Sodium 135 L, Potassium 3.1 L, Chloride 104, Carbon Dioxide 24.0, Anion Gap 7, BUN 11, Creatinine 0.85, Estim Creat Clear Calc 90.25, Est GFR (MDRD) Af Amer 103, Est GFR (MDRD) Non-Af 85, BUN/Creatinine Ratio 12.9, Glucose 110 H, Calcium 8.8, Total Bilirubin 0.60, AST 24, ALT 32, Alkaline Phosphatase 76, Troponin I High Sens 116 H, Total Protein 8.8 H, Albumin 3.6, Globulin 5.2 H, Albumin/Globulin Ratio 0.7 L 04/10/22 20:54: Lactic Acid 1.0 04/10/22 20:54: Serum , Qual NEGATIVE 04/10/22 20:54: ESR 53 H 04/10/22 20:54: B-Natriuretic Peptide 313.5 H 04/10/22 20:54: Procalcitonin 0.13 H 04/10/22 22:15: Urine Color Yellow, Urine Clarity Clear, Urine pH 7.0, Ur Specific [place] 1.010, Urine Protein 100 H, Urine Glucose (UA) Normal, Urine Ketones 150 A*, Urine Occult Blood 250 H, Urine Nitrite Negative, Urine Bilirubin Negative, Urine Urobilinogen 4 H, Ur Leukocyte Esterase 25 H, Urine RBC 10-25 SEEN, Urine WBC 0-5 SEEN, Ur Squamous Epith Cells 0-5 SEEN, Urine Bacteria 0 SEEN, Urine Mucus RARE 04/10/22 22:50: Troponin I High Sens 247 H* 04/10/22 22:50: Magnesium 1.8, C-React Prot Ext Range 142.00 H 04/10/22 23:55: COVID-19 (JACKI) Not Detected 04/11/22 03:05: Sodium 139, Potassium 3.5, Chloride 113 H, Carbon Dioxide 21.0, Anion Gap 5, BUN 10, Creatinine 0.62, Estim Creat Clear Calc 118.74, Est GFR (MDRD) Af Amer 148, Est GFR (MDRD) Non-Af 122, BUN/Creatinine Ratio 16.0, Glucose 114 H, Calcium 7.8 L, Total Bilirubin 0.40, AST 21, ALT 29, Alkaline Phosphatase 60, Total Protein 7.3, Albumin 2.9 L, Globulin 4.4 H, Albumin/Globulin Ratio 0.7 L 04/11/22 03:05: Troponin I High Sens 240 H* 04/11/22 06:46: WBC 3.9 L, RBC 3.67 L, Hgb 10.8 L, Hct 33.4 L, MCV 91.0, MCH 29.4, MCHC 32.3, RDW Std Deviation 45.2 H, RDW Coeff of Miki 13.4, Plt Count 152, MPV 9.7, Immature Gran % (Auto) 0.300, Neut % (Auto) 54.6, Lymph % (Auto) 33.1, [place] % (Auto) 11.7 H, Eos % (Auto) 0.0, Baso % (Auto) 0.3, Absolute Neuts (auto) 2.2, Absolute Lymphs (auto) 1.30, Nucleated RBC % 0 04/11/22 06:46: APTT 47.8 H Micro: Microbiology 04/10/22 23:55 Mucosa - Nose Respiratory Panel (PCR) - Final 04/10/22 23:12 Nasal Secretion SARS-CoV-2 Antigen (Rapid) - Final Radiology Impression Chest X-Ray 04/11/22 00:00 IMPRESSION: Negative. No acute cardiopulmonary disease process identified. Electronically Signed: Amor Vincent MD at 1:58 EDT , Echocardiogram 04/11/22 01:07 Interpretation Summary Normal LV size. Left ventricular systolic function is normal. The estimated ejection fraction is 60 %. Mild tricuspid valve insufficiency. Structurally normal valves. Ordering Physician: Jannette Aden Performed By: Gaviota Terry RCS
[2022-04-11 13:54] LABS: Partial Thromboplast Time 41.9 Seconds (24.1-36.2)
[2022-04-11] MEDS: Pantoprazole Sodium 40 MG Tablet PO (14:17)
[2022-04-11] MEDS: Ibuprofen 400 MG Tablet PO (14:17)
[2022-04-11] MEDS: Colchicine 0.6 MG TABLET PO (14:17)
[2022-04-11 14:54] LABS: Lyme Ab Screen Interpretation REF LAB
--- NOTE | 2022-04-11 15:05 | PCM.HP.STD ---
HPI - General General Date of Admission: 04/10/22 Chief Complaint: Fatigue, malaise, syncope, fever HPI Narrative SALO JOHNSON, is a 26 F who presents with a [facility] Medical History Anemia Obesity Home Medications ferrous sulfate [iron] 325 mg PO DAILY 04/10/22 [History Last Taken Unknown] Allergy/AdvReac Type Severity Reaction Status Date / Time No Known Allergies Allergy Verified 04/10/22 20:31 Family History (Updated 04/11/22 @ 00:[address] Jannette Aden MD) Grandmother Heart disease Maternal grandmother. CAD (coronary artery disease) Hypertension Myocardial infarction Aunt Heart disease Maternal aunt, CAD (coronary artery disease) Hypertension Myocardial infarction Uncle Heart disease Maternal uncle. CAD (coronary artery disease) Hypertension Myocardial infarction Family History other Surgical History (Updated 04/11/22 @ 00:[address] Jannette Aden MD) No history of previous surgery Surgical History no surgical history Social History (Updated 04/11/22 @ 01:[address] Jannette Aden MD) household members: family and children Smoking Status: Never smoker alcohol intake: never substance use type: does not use Vital Signs Vital Signs Vital Signs: 04/10/22 20:29 04/10/22 20:48 04/10/22 20:58 Temperature 97.6 F L 101.6 F H Temperature Source Temporal Oral Pulse Rate 132 H 110 H Pulse Strength Respiratory Rate 18 22 H Respiratory Effort Normal Non-Labored Respiratory Depth Respiratory Pattern Normal Blood Pressure 112/80 74/42 L Blood Pressure Mean 90 52 Blood Pressure Source Blood Pressure Position Blood Pressure Location Pulse Ox 100 110 Oxygen Delivery Method Room Air Room Air 04/10/22 21:26 04/10/22 22:08 04/11/22 00:00 Temperature 99.3 F H Temperature Source Oral Pulse Rate 115 H 120 H 103 H Pulse Strength Respiratory Rate 20 H 18 18 Respiratory Effort Respiratory Depth Respiratory Pattern Blood Pressure 115/86 H 111/75 117/83 H Blood Pressure Mean 95 87 94 Blood Pressure Source Blood Pressure Position Blood Pressure Location Pulse Ox 100 100 98 Oxygen Delivery Method Room Air Room Air Room Air 04/11/22 00:36 04/11/22 01:06 04/11/22 01:20 Temperature 98.6 F 97.3 F L Temperature Source Temporal Oral Pulse Rate 102 H 96 Pulse Strength Respiratory Rate 18 18 Respiratory Effort Normal Non-Labored Respiratory Depth Normal Respiratory Pattern Normal Blood Pressure 119/87 H 120/74 Blood Pressure Mean 97 89 Blood Pressure Source Monitor Blood Pressure Position Semi-Fowlers Blood Pressure Location Right Arm Pulse Ox 100 100 Oxygen Delivery Method Room Air Room Air Room Air 04/11/22 01:34 04/11/22 04:04 04/11/22 05:07 Temperature 96.1 F L Temperature Source Oral Pulse Rate 90 88 84 Pulse Strength Respiratory Rate 16 Respiratory Effort Respiratory Depth Respiratory Pattern Blood Pressure 114/68 Blood Pressure Mean 83 Blood Pressure Source Monitor Blood Pressure Position Semi-Fowlers Blood Pressure Location Right Arm Pulse Ox 97 Oxygen Delivery Method Room Air 04/11/22 06:59 04/11/22 08:06 04/11/22 08:47 Temperature Temperature Source Pulse Rate 91 Pulse Strength Normal (2+) Respiratory Rate Respiratory Effort Respiratory Depth Respiratory Pattern Blood Pressure Blood Pressure Mean Blood Pressure Source Blood Pressure Position Blood Pressure Location Pulse Ox 96 Oxygen Delivery Method Room Air 04/11/22 08:49 04/11/22 10:43 04/11/22 11:02 Temperature 97.2 F L Temperature Source Temporal Pulse Rate 101 H 107 H Pulse Strength Respiratory Rate 18 Respiratory Effort Normal Non-Labored Respiratory Depth Normal Respiratory Pattern Normal Blood Pressure 112/72 Blood Pressure Mean 85 Blood Pressure Source Monitor Blood Pressure Position Supine Blood Pressure Location Right Arm Pulse Ox 100 Oxygen Delivery Method Room Air Room Air 04/11/22 14:22 Temperature Temperature Source Pulse Rate Pulse Strength Respiratory Rate Respiratory Effort Normal Non-Labored Respiratory Depth Normal Respiratory Pattern Normal Blood Pressure Blood Pressure Mean Blood Pressure Source Blood Pressure Position Blood Pressure Location Pulse Ox Oxygen Delivery Method Room Air Weight Weight: 179 lb 14.355 oz Body Mass Index (BMI) 29.9 Results Lab / Micro Data Result Diagrams: 04/11/22 06:46 04/11/22 03:05 Labs: Laboratory Results - last 24 hr 04/10/22 20:54: WBC 6.2, RBC 4.25, Hgb 12.5, Hct 37.6, MCV 88.5, MCH 29.4, MCHC 33.2, RDW Std Deviation 42.2, RDW Coeff of Miki 13.1, Plt Count 199, MPV 9.7, Immature Gran % (Auto) 0.200, Neut % (Auto) 75.4 H, Lymph % (Auto) 17.9 L, [place] % (Auto) 6.3, Eos % (Auto) 0.0, Baso % (Auto) 0.2, Absolute Neuts (auto) 4.7, Absolute Lymphs (auto) 1.11, Nucleated RBC % 0 04/10/22 20:54: PT 14.9, INR 1.2, APTT 27.7 04/10/22 20:54: Sodium 135 L, Potassium 3.1 L, Chloride 104, Carbon Dioxide 24.0, Anion Gap 7, BUN 11, Creatinine 0.85, Estim Creat Clear Calc 90.25, Est GFR (MDRD) Af Amer 103, Est GFR (MDRD) Non-Af 85, BUN/Creatinine Ratio 12.9, Glucose 110 H, Calcium 8.8, Total Bilirubin 0.60, AST 24, ALT 32, Alkaline Phosphatase 76, Troponin I High Sens 116 H, Total Protein 8.8 H, Albumin 3.6, Globulin 5.2 H, Albumin/Globulin Ratio 0.7 L 04/10/22 20:54: Lactic Acid 1.0 04/10/22 20:54: Serum , Qual NEGATIVE 04/10/22 20:54: ESR 53 H 04/10/22 20:54: B-Natriuretic Peptide 313.5 H 04/10/22 20:54: Procalcitonin 0.13 H 04/10/22 22:15: Urine Color Yellow, Urine Clarity Clear, Urine pH 7.0, Ur Specific [place] 1.010, Urine Protein 100 H, Urine Glucose (UA) Normal, Urine Ketones 150 A*, Urine Occult Blood 250 H, Urine Nitrite Negative, Urine Bilirubin Negative, Urine Urobilinogen 4 H, Ur Leukocyte Esterase 25 H, Urine RBC 10-25 SEEN, Urine WBC 0-5 SEEN, Ur Squamous Epith Cells 0-5 SEEN, Urine Bacteria 0 SEEN, Urine Mucus RARE 04/10/22 22:50: Troponin I High Sens 247 H* 04/10/22 22:50: Magnesium 1.8, C-React Prot Ext Range 142.00 H 04/10/22 23:55: COVID-19 (JACKI) Not Detected 04/11/22 03:05: Sodium 139, Potassium 3.5, Chloride 113 H, Carbon Dioxide 21.0, Anion Gap 5, BUN 10, Creatinine 0.62, Estim Creat Clear Calc 118.74, Est GFR (MDRD) Af Amer 148, Est GFR (MDRD) Non-Af 122, BUN/Creatinine Ratio 16.0, Glucose 114 H, Calcium 7.8 L, Total Bilirubin 0.40, AST 21, ALT 29, Alkaline Phosphatase 60, Total Protein 7.3, Albumin 2.9 L, Globulin 4.4 H, Albumin/Globulin Ratio 0.7 L 04/11/22 03:05: Troponin I High Sens 240 H* 04/11/22 06:46: WBC 3.9 L, RBC 3.67 L, Hgb 10.8 L, Hct 33.4 L, MCV 91.0, MCH 29.4, MCHC 32.3, RDW Std Deviation 45.2 H, RDW Coeff of Miki 13.4, Plt Count 152, MPV 9.7, Immature Gran % (Auto) 0.300, Neut % (Auto) 54.6, Lymph % (Auto) 33.1, [place] % (Auto) 11.7 H, Eos % (Auto) 0.0, Baso % (Auto) 0.3, Absolute Neuts (auto) 2.2, Absolute Lymphs (auto) 1.30, Nucleated RBC % 0 04/11/22 06:46: APTT 47.8 H 04/11/22 13:30: APTT 41.9 H Micro: Microbiology 04/10/22 23:55 Mucosa - Nose Respiratory Panel (PCR) - Final 04/10/22 23:12 Nasal Secretion SARS-CoV-2 Antigen (Rapid) - Final Radiology Impression Chest X-Ray 04/11/22 00:00 IMPRESSION: Negative. No acute cardiopulmonary disease process identified. Electronically Signed: Amor Vincent MD at 1:58 EDT , Echocardiogram 04/11/22 01:07 Interpretation Summary Normal LV size. Left ventricular systolic function is normal. The estimated ejection fraction is 60 %. Mild tricuspid valve insufficiency. Structurally normal valves. Ordering Physician: Jannette Aden Performed By: Gaviota Terry RCS
--- NOTE | 2022-04-11 15:25 | PCM.DC.SUM ---
Providers Date of Admission: 04/10/22 Primary Care Physician: Dr. Zia Sims DO Consultations 04/11/22 01:07 Consult: Cardiology Routine Consulting Provider: Maik Mclaughlin Reason for Consult: NSTEMI, suspect myocarditis EMERGENT Consult: No Notified: Yes Date Notified: 04/11/22 Time Notified: 01:03 Method of Notification: Text 04/11/22 04:09 Consult: Infectious Disease Routine Consulting Provider: Arnel Flores Reason for Consult: Admit w/ Fever, Malaise, Fatigue, LH/Syncope, children N/V/D EMERGENT Consult: No Notified: Yes Date Notified: 04/11/22 Time Notified: 08:10 Method of Notification: Answering Service Reason For Visit: NSTEMI / SUSPECT VIRAL SYNDROME Diagnosis Discharge Diagnosis (1) Acute febrile illness: Status: Acute Code(s): R50.9 - Fever, unspecified (2) Pericarditis: Status: Acute Code(s): I31.9 - Disease of pericardium, unspecified (3) Myocarditis: Status: Acute Code(s): I51.4 - Myocarditis, unspecified Medications at Discharge Home Medications ferrous sulfate [iron] 325 mg PO DAILY 04/10/22 colchicine 0.6 mg PO BID #60 cap 04/11/22 ibuprofen 400 mg PO TID #42 tab 04/11/22 pantoprazole 40 mg PO DAILY #30 tab 04/11/22 Hospital Course Operations None Procedures 2-D Echocardiogram Summary of Care Provided Minutes Spent on Discharge: 40 Hospital Course: Patient is a 26-year-old female with no significant past medical history except for anemia during was admitted through the ED on 04/10/2022 with a complaint of weakness and dizziness as well as shortness of breath and palpitation which started getting worse about 4 days prior to admission. She also had a syncopal episode on the morning of admission when she stood up to dressed and then passed out. She only passed out briefly but subsequently came to. Patient said her children had what appeared to be a viral illness with nausea and vomiting as well as diarrhea a few days prior to his symptoms starting. The symptoms had resolved. She did not have any nausea, vomiting or diarrhea is but subsequently started having the above-mentioned symptoms. She denied any rash or any insect bites. Review of systems otherwise negative. On admission she was found to have elevated troponin. EKG showed no acute ST changes. She was admitted and managed for non-STEMI which was thought to be likely due to myocarditis from an acute viral illness, probably CMV. She was initially started on heparin drip and 2D echo was ordered. Cardiology was consulted. Per cardiology, this was likely pericarditis/myocarditis and patient was commenced on colchicine and ibuprofen as well as pantoprazole. Heparin drip and aspirin were discontinued. 2D echo showed EF of 60% with no regional wall motion abnormalities seen. Patient felt much better and improved more rapidly than expected. She was therefore discharged home on 04/11/2022 on p.o. ibuprofen 400 mg 3 times daily for 14 days as well as p.o. pantoprazole for GI prophylaxis. She was also discharged on p.o. colchicine 0.6 mg twice daily for 1 month. She is follow-up with her primary care doctor and with cardiology on outpatient basis. Of note, cytomegalovirus PCR in antibodies were ordered and pending and Lyme disease testing was also ordered and pending at time of discharge. Infectious disease also reviewed her and agreed with the diagnosis of myocarditis/pericarditis. Patient was seen and examined prior to discharge. She felt much better and had no active complaints. She had an uneventful night. Review of systems otherwise negative. Labs and vitals reviewed. Home medication reviewed and reconciled. Physical Exam Const alert, oriented x3 and no apparent distress General Appearance: cooperative and comfortable Exam Limitations: no limitations HEENT normocephalic, head/scalp atraumatic, hearing grossly normal bilaterally and moist oral mucous membranes Eyes PERRL, EOMs intact bilaterally and conjunctivae normal Neck no lymphadenopathy, supple and no JVD Resp normal respiratory effort, no retractions, no use of accessory muscles and clear to auscultation bilaterally Cardio regular rate, regular rhythm, S1 normal heart sound, S2 normal heart sound and no murmurs GI normal to inspection, nondistended, normoactive bowel sounds, soft to palpation, non-tender and non-distended Extremity normal to inspection, full ROM and no clubbing, cyanosis or edema Skin no rashes or lesions noted and no wounds Neuro oriented x3, CN's II-XII intact bilaterally and moves all extremities Sensorium / Orientation: awake and alert Psych affect normal Weight / BMI Weight Weight: 179 lb 14.355 oz Body Mass Index (BMI) 29.9 ABG / Lab / Microbiology Data Result Diagrams: 04/11/22 06:46 04/11/22 03:05 Laboratory: Laboratory Results - last 24 hr 04/10/22 20:54: WBC 6.2, RBC 4.25, Hgb 12.5, Hct 37.6, MCV 88.5, MCH 29.4, MCHC 33.2, RDW Std Deviation 42.2, RDW Coeff of Miki 13.1, Plt Count 199, MPV 9.7, Immature Gran % (Auto) 0.200, Neut % (Auto) 75.4 H, Lymph % (Auto) 17.9 L, [place] % (Auto) 6.3, Eos % (Auto) 0.0, Baso % (Auto) 0.2, Absolute Neuts (auto) 4.7, Absolute Lymphs (auto) 1.11, Nucleated RBC % 0 04/10/22 20:54: PT 14.9, INR 1.2, APTT 27.7 04/10/22 20:54: Sodium 135 L, Potassium 3.1 L, Chloride 104, Carbon Dioxide 24.0, Anion Gap 7, BUN 11, Creatinine 0.85, Estim Creat Clear Calc 90.25, Est GFR (MDRD) Af Amer 103, Est GFR (MDRD) Non-Af 85, BUN/Creatinine Ratio 12.9, Glucose 110 H, Calcium 8.8, Total Bilirubin 0.60, AST 24, ALT 32, Alkaline Phosphatase 76, Troponin I High Sens 116 H, Total Protein 8.8 H, Albumin 3.6, Globulin 5.2 H, Albumin/Globulin Ratio 0.7 L 04/10/22 20:54: Lactic Acid 1.0 04/10/22 20:54: Serum , Qual NEGATIVE 04/10/22 20:54: ESR 53 H 04/10/22 20:54: B-Natriuretic Peptide 313.5 H 04/10/22 20:54: Procalcitonin 0.13 H 04/10/22 22:15: Urine Color Yellow, Urine Clarity Clear, Urine pH 7.0, Ur Specific [place] 1.010, Urine Protein 100 H, Urine Glucose (UA) Normal, Urine Ketones 150 A*, Urine Occult Blood 250 H, Urine Nitrite Negative, Urine Bilirubin Negative, Urine Urobilinogen 4 H, Ur Leukocyte Esterase 25 H, Urine RBC 10-25 SEEN, Urine WBC 0-5 SEEN, Ur Squamous Epith Cells 0-5 SEEN, Urine Bacteria 0 SEEN, Urine Mucus RARE 04/10/22 22:50: Troponin I High Sens 247 H* 04/10/22 22:50: Magnesium 1.8, C-React Prot Ext Range 142.00 H 04/10/22 23:55: COVID-19 (JACKI) Not Detected 04/11/22 03:05: Sodium 139, Potassium 3.5, Chloride 113 H, Carbon Dioxide 21.0, Anion Gap 5, BUN 10, Creatinine 0.62, Estim Creat Clear Calc 118.74, Est GFR (MDRD) Af Amer 148, Est GFR (MDRD) Non-Af 122, BUN/Creatinine Ratio 16.0, Glucose 114 H, Calcium 7.8 L, Total Bilirubin 0.40, AST 21, ALT 29, Alkaline Phosphatase 60, Total Protein 7.3, Albumin 2.9 L, Globulin 4.4 H, Albumin/Globulin Ratio 0.7 L 04/11/22 03:05: Troponin I High Sens 240 H* 04/11/22 06:46: WBC 3.9 L, RBC 3.67 L, Hgb 10.8 L, Hct 33.4 L, MCV 91.0, MCH 29.4, MCHC 32.3, RDW Std Deviation 45.2 H, RDW Coeff of Miki 13.4, Plt Count 152, MPV 9.7, Immature Gran % (Auto) 0.300, Neut % (Auto) 54.6, Lymph % (Auto) 33.1, [place] % (Auto) 11.7 H, Eos % (Auto) 0.0, Baso % (Auto) 0.3, Absolute Neuts (auto) 2.2, Absolute Lymphs (auto) 1.30, Nucleated RBC % 0 04/11/22 06:46: APTT 47.8 H 04/11/22 13:30: APTT 41.9 H Microbiology: Microbiology 04/10/22 23:55 Mucosa - Nose Respiratory Panel (PCR) - Final 04/10/22 23:12 Nasal Secretion SARS-CoV-2 Antigen (Rapid) - Final Radiography Diagnostic Testing: Radiology Impression Chest X-Ray 04/11/22 00:00 IMPRESSION: Negative. No acute cardiopulmonary disease process identified. Electronically Signed: Amor Vincent MD at 1:58 EDT , Echocardiogram 04/11/22 01:07 Interpretation Summary Normal LV size. Left ventricular systolic function is normal. The estimated ejection fraction is 60 %. Mild tricuspid valve insufficiency. Structurally normal valves. Ordering Physician: Jannette Aden Performed By: Gaviota Terry RCS D/C Instructions Discharge Diet: No restrictions Discharge Activity: Return to Normal Activity Weight Bearing Status: Weight bearing as tolerated Call your doctor if you observe: Fever of 101 or Higher, Shortness of breath, Dizziness, Chest pain and Increased palpitations (irregular heartbeat) Meaningful Use Info Meaningful Use Diagnoses (Choose all that apply): None applicable Discharge Plan Admission Admit Date/Time: 04/10/22 23:47 Primary Reason for Your Visit: viral myocarditis and pericarditis Attending Provider: Korin Mendez Primary Care Provider: Zia Sims Consulting Providers: Maik Mclaughlin ; Jannette Aden ; Arnel Flores Instructions Patient Instructions: Pericarditis Discharge Orders/Prescriptions Prescriptions: New pantoprazole 40 mg Tablet,Delayed Release (Dr/Ec) 40 mg PO DAILY Qty: 30 RF: 0 ibuprofen 400 mg Tablet 400 mg PO TID Qty: 42 RF: 0 colchicine 0.6 mg Capsule 0.6 mg PO BID Qty: 60 RF: 0 Continued ferrous sulfate [iron] 325 mg (65 mg iron) Tablet 325 mg PO DAILY RF: 0 Referrals / Follow Up: Bethany,Zia, DO [Primary Care Provider] - Within 2 Weeks Hank Mixon MD [STAFF PHYSICIAN] - Within 2 Weeks Disposition Disposition (needs filled in before D/C Order can be placed): Home, Self Care Charges/Coding Visit Charges Inpatient E&M: 24158 Disch Hosp
[2022-04-13 08:37] LABS: CMV Acute Antibody IgM < 30.0 AU/mL (0.0-29.9); Lyme Scn Total Ab w/Rflx Negative (Negative)
[2022-04-15 18:15] LABS: CMV by PCR Negative (Negative)
== END 2022-04-11 18:04 | disposition home or self-care (01) | DRG 281 ==
LOC: ED 04-11 → PCU 04-11 00:14
PROVIDERS: Admitting Provider Family Medicine; Emergency Provider Emergency Medicine; PCP Family Medicine; Visit Provider Student in an Organized Health Care Education/Training Program
DX: I21.4 Non-ST elevation (NSTEMI) myocardial infarction (principal); E87.1 Hypo-osmolality and hyponatremia; B33.22 Viral myocarditis; D50.9 Iron deficiency anemia, unspecified; E87.6 Hypokalemia; E66.9 Obesity, unspecified; R55 Syncope and collapse; Z68.29 Body mass index [BMI] 29.0-29.9, adult; Z79.899 Other long term (current) drug therapy; Z28.310 Unvaccinated for COVID-19; Z28.9 Immunization not carried out for unspecified reason; Z82.49 Family history of ischemic heart disease and other diseases of the circulatory system
CPT/HCPCS: 36415; 71045; 80053; 81001; 83605; 83735; 83880; 84145; 84484; 84703; 85025; 85610; 85652; 85730; 86140; 86618; 86645; 87040; 87086; 87088; 87496; 87633; 87635; 87811; 93005; 93306; 99251; 99285; J7030; A4216; G0463; U0003; U0005

== ENCOUNTER 2022-04-22 19:59 | Emergency (ER) | payer OTHER, SELFPAY ==
[2022-04-22 20:01] VITALS: BP 124/80; PULSE 104; RESP 16; TEMP 36.2; O2SAT 99; BMI 31.0
--- NOTE | 2022-04-22 20:16 | EX.ED.DYSGE1 ---
HPI History of Present Illness Chief Complaint: Palpitations Informant: patient Onset/Context/Timing Onset: Today and Hours (2) Context: Sudden Onset Timing: Continuous and Waxes and wanes Quality: Fluttering Location: Chest Worsened by: Nothing Relieved by: Nothing Narrative Narrative: Patient presents with palpitations that began approximately 2 hours prior to arrival. Patient states she had just finished eating dinner when she felt some fluttering in her chest. Patient states it has been constant but has been waxing and waning. Patient states nothing makes it any better and nothing makes it any worse. Patient admits to some shortness of breath but denies any cough. Patient denies any overt chest pain. Patient denies any nausea or vomiting. Patient denies any diaphoresis. [facility] Medical History Anemia Elevated troponin Obesity Syncope and collapse Home Medications colchicine 0.6 mg PO BID #60 cap 04/11/22 [Rx Last Taken Unknown] ibuprofen 400 mg PO TID #42 tab 04/11/22 [Rx Last Taken Unknown] pantoprazole 40 mg PO DAILY #30 tab 04/11/22 [Rx Last Taken Unknown] Allergy/AdvReac Type Severity Reaction Status Date / Time No Known Allergies Allergy Verified 04/22/22 20:00 Family History (Updated 04/11/22 @ 00:[address] Jannette Aden MD) Grandmother Heart disease Maternal grandmother. CAD (coronary artery disease) Hypertension Myocardial infarction Aunt Heart disease Maternal aunt, CAD (coronary artery disease) Hypertension Myocardial infarction Uncle Heart disease Maternal uncle. CAD (coronary artery disease) Hypertension Myocardial infarction Surgical History No history of previous surgery Social History household members: family and children Smoking Status: Never smoker alcohol intake: never substance use type: does not use ROS ROS ED Constitutional Constitutional ED: Denies chills or fever(s) Eyes Eyes: Denies blurry vision or change in vision ENT ENT ED: Denies rhinorrhea or sore throat Cardiovascular Cardiovascular: Reports palpitations; Denies chest pain Respiratory/Chest Respiratory/Chest: Reports dyspnea; Denies cough Gastrointestinal Gastrointestinal: Denies nausea or vomiting Genitourinary Genitourinary ED: Denies dysuria or hematuria Musculoskeletal Musculoskeletal: Reports neck pain; Denies back pain Integumentary Reports rash; Denies abscess Neurologic Neurologic: Denies headache(s) or weakness Allergic/Immunologic Allergic/Immunologic ED: Denies mouth swelling or urticaria EXAM Physical Exam Const Vital Signs: 04/22/22 20:01 04/22/22 20:12 04/22/22 20:34 Temperature 97.2 F L Temperature Source Temporal Pulse Rate 104 H Respiratory Rate 16 Respiratory Effort Normal Blood Pressure 124/80 H Blood Pressure Mean 94 Pulse Ox 99 Oxygen Delivery Method Room Air Room Air Positive well nourished and well developed General Appearance ED: well developed HEENT Reports moist mucous membranes Neck supple and no JVD Resp normal respiratory effort and clear to auscultation bilaterally Cardio regular rate, regular rhythm and no murmurs GI normal to inspection, nondistended, normoactive bowel sounds and non-tender Palpation: soft Extremity normal to inspection General Extremety ED: Negative for edema or tenderness General Extremity: Negative for edema Neuro oriented x3, CN's II-XII intact bilaterally and no sensory deficits noted Sensorium / Orientation: alert Motor Exam: strength 5/5 throughout Psych mental status grossly normal MDM MDM MDM Narrative Medical decision making narrative: EKG was obtained. On my interpretation, it showed a normal sinus rhythm with a rate of 96. [place] interval, QRS interval, and QTc intervals were all normal. [place] was normal. There are no acute ST or T wave changes. Portable 1 view chest x-ray was obtained. On my interpretation, lung adame are clear. There is normal cardiac silhouette. Bony thorax is normal. There is no acute process noted. Radiologist also interpreted the x-ray and agrees. CBC shows a mild anemia with a hemoglobin of 10.9 and hematocrit 33.3. D-dimer was elevated 0.68. Basic metabolic profile showed a mild hypokalemia of 3.3 but was otherwise within normal limits. High-sensitivity troponin was normal at 4. TSH was normal. Magnesium was normal. Because of the elevated D-dimer, CTA of the chest was obtained. There is no evidence of pulmonary embolism or aortic dissection. This was interpreted by the radiologist and reviewed by myself. Patient was given a dose of potassium here. 2-hour repeat high-sensitivity troponin was obtained and was less than 3. Patient has a HEART score of 0. Patient was advised that this is low risk for acute cardiac event. Patient was feeling better on reevaluation. Patient was instructed to follow-up with her primary care physician in 3 to 5 days. Patient was advised she may need further evaluation as an outpatient for these palpitations. Patient and understand and are agreeable with the plan. All questions were answered. Lab Data Attestation: I reviewed the patient's lab results. Labs: Laboratory Results - last 24 hr 04/22/22 04/22/22 04/22/22 20:35 20:35 20:35 WBC 6.4 RBC 3.73 L Hgb 10.9 L Hct 33.3 L MCV 89.3 MCH 29.2 MCHC 32.7 RDW Std Deviation 41.3 RDW Coeff of Miki 12.7 Plt Count 299 MPV 9.0 Immature Gran % (Auto) 0.200 Neut % (Auto) 70.0 Lymph % (Auto) 20.9 [place] % (Auto) 8.1 Eos % (Auto) 0.3 Baso % (Auto) 0.5 Absolute Neuts (auto) 4.5 Absolute Lymphs (auto) 1.34 Nucleated RBC % 0 D-Dimer Quant (PE/DVT) 0.68 H* Sodium 139 Potassium 3.3 L Chloride 108 H Carbon Dioxide 27.0 Anion Gap 4 L BUN 15 Creatinine 0.86 Estim Creat Clear Calc 89.20 Est GFR (MDRD) Af Amer 102 Est GFR (MDRD) Non-Af 85 BUN/Creatinine Ratio 17.5 Glucose 109 H Calcium 9.1 Magnesium 2.0 Troponin I High Sens 4 TSH 2.59 04/22/22 22:36 WBC RBC Hgb Hct MCV MCH MCHC RDW Std Deviation RDW Coeff of Miki Plt Count MPV Immature Gran % (Auto) Neut % (Auto) Lymph % (Auto) [place] % (Auto) Eos % (Auto) Baso % (Auto) Absolute Neuts (auto) Absolute Lymphs (auto) Nucleated RBC % D-Dimer Quant (PE/DVT) Sodium Potassium Chloride Carbon Dioxide Anion Gap BUN Creatinine Estim Creat Clear Calc Est GFR (MDRD) Af Amer Est GFR (MDRD) Non-Af BUN/Creatinine Ratio Glucose Calcium Magnesium Troponin I High Sens < 3 L TSH Radiography Chest X-Ray - ED: 1 View, Read by ED Physician, Read by Radiologist and No Acute Disease Diagnostic Testing: Clinical Impression(s) from Imaging Studies Chest X-Ray 04/22/22 20:38 IMPRESSION: Normal x-ray examination of the chest. Electronically Signed: Emmy Chen MD at 21:01 EDT Reading Location ID and State: [id number] / Tel , Service support , Chest CTA 04/22/22 21:16 IMPRESSION: Negative CTA chest. Electronically Signed: Emmy Chen MD at 22:24 EDT [place] Location ID and State: [id number] / Tel , Service support , EKG Initial EKG: Attestation: I personally reviewed and interpreted this EKG as follows: Interpretation: Sinus Rhythm (96) and No Acute Injury Pattern Prior EKG tracings: available for review Prior: Unchanged (04/11/2022) Discharge Plan Triage Chief Complaint: Palpitations ED Provider: Jerry Villasenor Dx/Rx/DC Orders Clinical Impression: Palpitations Instructions: ED Palpitations Prescriptions: No Action pantoprazole 40 mg Tablet,Delayed Release (Dr/Ec) 40 mg PO DAILY Qty: 30 RF: 0 ibuprofen 400 mg Tablet 400 mg PO TID Qty: 42 RF: 0 colchicine 0.6 mg Capsule 0.6 mg PO BID Qty: 60 RF: 0 Primary Care Provider: Zia Sims Referrals: Zia Sims DO [Primary Care Provider] - 3-5 Days Disposition Disposition: Home, Self Care
--- NOTE | 2022-04-22 20:27 | EKG12_ITS ---
Test Reason : PALPS Blood Pressure : / mmHG Vent. Rate : 096 BPM Atrial Rate : 250 BPM P-R Int : 000 ms QRS Dur : 094 ms QT Int : 342 ms P-R-T Axes : 000 073 -34 degrees QTc Int : 432 ms Atrial fibrillation Otherwise normal ECG Confirmed by LIBERTAD SINGH, POOJA ([id number]), news video editor TODD ESCALANTE ([id number]) on 04/23/2022 10:17:48 AM Referred By: WILLIAM Confirmed By:POOJA MAURER MD
[2022-04-22] MEDS: Aspirin 81 MG TAB.CHEW 324 MG PO (20:32)
--- NOTE | 2022-04-22 20:38 | RAD_ITS ---
STUDY: X-RAY CHEST REASON FOR EXAM: Female, 26 years old. chest pain TECHNIQUE: Single AP portable view of the chest. COMPARISON: 04/11/2022. FINDINGS: The lungs are clear and expanded. There is no demonstrated pleural abnormality. Normal size heart. Normal mediastinum and yair. Normal visualized pulmonary arteries. Normal visualized aortic arch and descending thoracic aorta. Normal visualized thoracic spine. Normal visualized ribs, clavicles, and shoulders. There is no demonstrated abnormality of the visualized soft tissue structures of the upper abdomen. RAD/Chest 1 View (Portable) IMPRESSION: Normal x-ray examination of the chest. Electronically Signed: Emmy Chen MD at 21:01 EDT Reading Location ID and State: [id number] / Tel , Service support ,
[2022-04-22 20:41] LABS: Absolute Lymphocyte Count 1.34 X10^3/uL (0.83-4.51); Absolute Neutrophil Count 4.5 X10^3/uL (2.0-7.7); Basophil# 0.03 X10^3/uL; Basophil% 0.5 % (0-1); Eosinophil# 0.02 X10^3/uL; Eosinophils% 0.3 % (0-5); Hematocrit 33.3 % (37-47); Hemoglobin 10.9 g/dL (12.0-15.0); Lymphocyte # 1.34 X10^3/ul (0.83-4.51); Lymphocyte % 20.9 % (19-41); Mean Corp Hgb Conc 32.7 g/dL (32-36); Mean Corpuscular Hgb 29.2 pg (27.0-32.0); Mean Corpuscular Volume 89.3 fL (81-99); Monocyte# 0.52 X10^3/uL; Monocyte% 8.1 % (0-10); NRBC Flagged by Analyzer 0 % (0-5); Neutrophil # 4.48 X10^3/uL (2.7-7.7); Platelet Count 299 K/mm3 (150-450); RBC Distribution Width CV 12.7 % (11.6-14.6); RBC Distribution Width SD 41.3 fl (35.1-43.9); Red Blood Count 3.73 M/mm3 (4.2-5.4); White Blood Count 6.4 K/mm3 (4.4-11.0)
[2022-04-22 21:11] LABS: Anion Gap 4 (5-15); BUN 15 mg/dL (7-18); BUN/Creat Ratio 17.5 RATIO (10-20); Calcium,Total 9.1 mg/dL (8.5-10.1); Chloride 108 mmol/L (98-107); Creatinine, Serum 0.86 mg/dL (0.55-1.02); EST Glomerular Filtration Rate 85 mL/min (>60); Est Glom Filt Rate - Afr Amer 102 mL/min (>60); Glucose 109 mg/dL (74-106); Potassium 3.3 mmol/L (3.5-5.1); Sodium Level 139 mmol/L (136-145); Thyroid Stim Hormone (TSH) 2.59 uIU/mL (0.358-3.74); Troponin-I HS (w/2H Reflex) 4 pg/mL (3.0-54.0)
[2022-04-22 21:14] LABS: D-Dimer Quantitative (DVT/PE) 0.68 FEU/ug/m (0.27-0.49)
--- NOTE | 2022-04-22 21:16 | CT_ITS ---
EXAM: CT ANGIOGRAPHY CHEST WITHOUT AND WITH INTRAVENOUS CONTRAST CLINICAL INDICATION: Elevated D-dimer TECHNIQUE: Helically acquired angiography images were obtained of the chest without and with intravenous contrast. This CT exam was performed using one or more of the following dose reduction techniques: automated exposure control, adjustment of the mA and/or kV according to patient size, and/or use of iterative reconstruction technique. This report was created using [employer] report generation technology. MIP reconstructed images were created and reviewed. CONTRAST: IV 100mL [id number] COMPARISON: None. FINDINGS: PULMONARY ARTERIES: Unremarkable. Normal in caliber. No evidence of pulmonary embolism. AORTA: Unremarkable. Normal in caliber. No evidence of dissection. GREAT VESSELS OF AORTIC ARCH: Unremarkable. Normal in caliber. No evidence of dissection. LUNGS AND PLEURAL SPACES: Unremarkable. No mass. No consolidation or edema. No pleural effusion or thickening. No pneumothorax. HEART: Unremarkable. Heart size is normal. No pericardial effusion. No signs of right heart strain, ratio of right ventricle to left ventricle measures less than 1. MEDIASTINUM: Unremarkable. No mediastinal or hilar adenopathy. Esophagus is unremarkable. No hiatal hernia. THYROID: Unremarkable. No thyroid lesions. BONES/JOINTS: Unremarkable. No suspicious lytic or blastic abnormality. CT/CTA Chest W/WO Contrast IMPRESSION: Negative CTA chest. Electronically Signed: Emmy Chen MD at 22:24 EDT Reading Location ID and State: [id number] / Tel , Service support ,
[2022-04-22 22:38] LABS: Reflex Troponin-HS? (from REC) Y
[2022-04-22] MEDS: Potassium Chloride Oral Tablet 20 MEQ 40 MEQ PO (22:39)
[2022-04-22 23:19] LABS: Troponin-I HS < 3 pg/mL (3.0-54.0)
[2022-04-22 23:46] VITALS: BP 112/72; PULSE 80
== END 2022-04-22 23:46 | disposition home or self-care (01) ==
PROVIDERS: Emergency Provider Emergency Medicine; PCP Family Medicine; Visit Provider Emergency Medicine
DX: R00.2 Palpitations (principal); E66.9 Obesity, unspecified; Z68.31 Body mass index [BMI] 31.0-31.9, adult; Z82.49 Family history of ischemic heart disease and other diseases of the circulatory system
CPT/HCPCS: 71045; 71275; 80048; 83735; 84443; 84484; 85025; 85379; 93005; 99285; Q9967; A4216

== ENCOUNTER → 2022-04-28 | Outpatient (CLI) | payer OTHER, SELFPAY ==
[2022-04-28 15:08] LABS: Absolute Lymphocyte Count 1.45 X10^3/uL (0.83-4.51); Absolute Neutrophil Count 2.7 X10^3/uL (2.0-7.7); Basophil# 0.03 X10^3/uL; Basophil% 0.6 % (0-1); Eosinophil# 0.04 X10^3/uL; Eosinophils% 0.8 % (0-5); Hematocrit 33.5 % (37-47); Hemoglobin 11.1 g/dL (12.0-15.0); Lymphocyte # 1.45 X10^3/ul (0.83-4.51); Lymphocyte % 30.8 % (19-41); Mean Corp Hgb Conc 33.1 g/dL (32-36); Mean Corpuscular Hgb 29.1 pg (27.0-32.0); Mean Corpuscular Volume 87.9 fL (81-99); Mean Platelet Vol. 9.2 fl (6.2-12.0); Monocyte# 0.49 X10^3/uL; Monocyte% 10.4 % (0-10); NRBC Flagged by Analyzer 0 % (0-5); Neutrophil # 2.68 X10^3/uL (2.7-7.7); POSITIVE MORPHOLOGY YES; Platelet Count 334 K/mm3 (150-450); RBC Distribution Width CV 12.6 % (11.6-14.6); RBC Distribution Width SD 40.7 fl (35.1-43.9); Red Blood Count 3.81 M/mm3 (4.2-5.4); White Blood Count 4.7 K/mm3 (4.4-11.0)
[2022-04-28 15:20] LABS: Differential Indicated SCAN CRITERIA MET
[2022-04-28 15:39] LABS: Differential Comment SCANNED
[2022-04-28 15:45] LABS: BUN 11 mg/dL (7-18); BUN/Creat Ratio 15.4 RATIO (10-20); Calcium,Total 9.5 mg/dL (8.5-10.1); Chloride 106 mmol/L (98-107); Creatinine, Serum 0.71 mg/dL (0.55-1.02); EST Glomerular Filtration Rate 105 mL/min (>60); Est Glom Filt Rate - Afr Amer 127 mL/min (>60); Glucose 98 mg/dL (74-106); Potassium 3.6 mmol/L (3.5-5.1); Sodium Level 139 mmol/L (136-145)
[2022-04-28 15:46] LABS: Anion Gap 6 (5-15)
== END | disposition home or self-care (01) ==
PROVIDERS: PCP Family Medicine; Visit Provider Nurse Practitioner Gerontology
DX: R53.83 Other fatigue (principal)
CPT/HCPCS: 36415; 80048; 85025

== ENCOUNTER → 2024-07-12 | Outpatient (CLI) | payer SELFPAY ==
[2024-07-12 12:55] LABS: Absolute Lymphocyte Count 1.28 X10^3/uL (0.83-4.51); Absolute Neutrophil Count 4.3 X10^3/uL (2.0-7.7); Basophil# 0.01 X10^3/uL; Basophil% 0.2 % (0-1); Eosinophil# 0.01 X10^3/uL; Eosinophils% 0.2 % (0-5); Hematocrit 31.4 % (37-47); Hemoglobin 10.4 g/dL (12.0-15.0); Lymphocyte # 1.28 X10^3/ul (0.83-4.51); Lymphocyte % 21.3 % (19-41); Mean Corp Hgb Conc 33.1 g/dL (32-36); Mean Corpuscular Hgb 29.5 pg (27.0-32.0); Mean Platelet Vol. 9.7 fl (6.2-12.0); Monocyte# 0.45 X10^3/uL; Monocyte% 7.5 % (0-10); NRBC Flagged by Analyzer 0 % (0-5); Neutrophil # 4.25 X10^3/uL (2.7-7.7); Neutrophil % 70.6 % (47-70); Platelet Count 267 K/mm3 (150-450); RBC Distribution Width CV 13.6 % (11.6-14.6); RBC Distribution Width SD 43.9 fl (35.1-43.9); Red Blood Count 3.53 M/mm3 (4.2-5.4)
[2024-07-12 13:16] LABS: BNP,B-Type NATRIURETIC PEPTIDE 18.4 pg/mL (0-100)
[2024-07-12 13:21] LABS: Anion Gap 7 (5-15); BUN 10 mg/dL (7-18); BUN/Creat Ratio 20.6 RATIO (10-20); Calcium,Total 9.5 mg/dL (8.5-10.1); Chloride 107 mmol/L (98-107); Creatinine, Serum 0.48 mg/dL (0.55-1.02); EST Glomerular Filtration Rate 161 mL/min (>60); Est Glom Filt Rate - Afr Amer 194 mL/min (>60); Glucose 86 mg/dL (74-106); Potassium 3.9 mmol/L (3.5-5.1); Sodium Level 136 mmol/L (136-145)
== END | disposition home or self-care (01) ==
LOC: LAB 12:08
PROVIDERS: PCP Family Medicine; Referring Provider Nurse Practitioner Gerontology; Visit Provider Nurse Practitioner Gerontology
DX: R06.09 Other forms of dyspnea (principal)
CPT/HCPCS: 36415; 80048; 83880; 85025

== ENCOUNTER → 2024-08-01 | Outpatient (CLI) | payer SELFPAY ==
--- NOTE | 2024-08-01 10:01 | ECHOD_ITS ---
Reason For Study: DYSPNEA Procedure This was a 2D Doppler, Color Flow transthoracic echocardiogram. Exam performed in department. Left Ventricle Normal LV size. Left ventricular systolic function is normal. The left ventricular ejection fraction is 60 %. No regional wall motion abnormalities noted. Right Ventricle Normal RV size. Normal systolic function. Atria The left atrium is mildly enlarged. Normal right atrium. Mitral Valve Normal mitral valve. Mild (1+) eccentric mitral valve insufficiency. Tricuspid Valve Normal tricuspid valve. Aortic Valve Normal aortic valve. Trisinus/trileaflet aortic valve. Pulmonic Valve Normal pulmonic valve. Great Vessels Normal aortic root. The pulmonary artery is normal size. Normal inferior vena cava. Pericardium/Pleural No pericardial effusion. MMode/2D Measurements & Calculations LVIDd: 4.9 cm IVSd: 0.89 cm LVOT diam: 2.0 cm LVIDs: 3.3 cm LVPWd: 0.90 cm LVOT area: 3.2 cm2 RVDd: 4.0 cm FS: 33.3 % % IVS thick: 28.5 % MVA(traced): 6.9 cm2 Ao root diam: 2.6 cm asc Aorta Diam: 2.9 cm LAV(MOD-sp4): 56.7 ml LVAd ap4: 36.3 cm2 LVLd ap4: 9.9 cm EDV(MOD-sp4): 117.4 ml EDV(sp4-el): 112.8 ml LVAs ap4: 20.2 cm2 LVLs ap4: 7.9 cm ESV(MOD-sp4): 45.4 ml ESV(sp4-el): 43.6 ml EF(MOD-sp4): 61.3 % EF(sp4-el): 61.4 % SV(MOD-sp4): 72.0 ml SV(sp4-el): 69.2 ml LA A4 area: 21.0 cm2 LA dimension(2D): 4.3 cm TAPSE: 1.5 cm RA A4 area: 12.2 cm2 Time Measurements MV dec time: 0.12 sec Doppler Measurements & Calculations MV E max victor hugo: 84.4 cm/sec Lat Peak E' Victor Hugo: 19.8 cm/sec Med Peak E' Victor Hugo: 11.0 cm/sec MV A max victor hugo: 65.4 cm/sec E/E' lat: 4.3 E/E' med: 7.7 MV E/A: 1.3 MV V2 max: 93.6 cm/sec MV dec slope: 694.2 cm/sec2 Ao V2 max: 148.3 cm/sec MV max P.5 mmHg Ao max P.8 mmHg MV V2 mean: 61.3 cm/sec Ao V2 mean: 100.8 cm/sec MV mean P.7 mmHg Ao mean P.8 mmHg MV V2 VTI: 25.7 cm Ao V2 VTI: 27.7 cm MVA(VTI): 3.0 cm2 AV (velocity ratio): 0.88 LURDES(I,D): 2.8 cm2 LURDES(V,D): 2.9 cm2 LV V1 max: 135.7 cm/sec SV(LVOT): 77.5 ml PA V2 max: 108.1 cm/sec LV V1 max P.4 mmHg PA max PG (full): 2.6 mmHg LV V1 mean P.4 mmHg PA V2 mean: 76.3 cm/sec LV V1 mean: 97.4 cm/sec PA mean PG (full): 1.5 mmHg LV V1 VTI: 24.2 cm ECHO/Echo Complete Interpretation Summary Normal LV size. Left ventricular systolic function is normal. The left ventricular ejection fraction is 60 %. Mild (1+) eccentric mitral valve insufficiency. Structurally normal valves. Ordering Physician: Helga Duque Referring Physician: Helga Duque Performed By: Gaviota Terry RCS
== END | disposition home or self-care (01) ==
PROVIDERS: PCP Family Medicine; Referring Provider Nurse Practitioner Gerontology; Visit Provider Nurse Practitioner Gerontology
DX: R06.09 Other forms of dyspnea (principal)
CPT/HCPCS: 93306